=== PATIENT | male | born 1965 | race Two or more races ===

== ENCOUNTER 2018-01-20 10:50 | Inpatient (IN) | payer SELFPAY ==
[~2018-01-20] VITALS: Ht 180.3 cm; Wt 127.0 kg
--- NOTE | 2018-01-20 11:38 | PHYS DOC ---
Past Medical History Past Medical History: No Pertinent History Past Surgical History: Other Additional Past Surgical Histo: RIGHT LEG SX Alcohol Use: Heavy Drug Use: Cocaine, Marijuana Adult General Chief Complaint Chief Complaint: HAND PROBLEM HPI HPI Patient is a 52 year old male presents to the ED complaining of left hand swelling 1 day. 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 States today he has had left hand swelling and pain when he woke up. Describes the pain as sharp. Rates the pain as 8 out of 10. Denies injury, headache, chest pain, shortness of breath, paresthesias, fever, laceration. Review of Systems Review of Systems Constitutional: Denies fever or chills [] Respiratory: Denies cough or shortness of breath [] Cardiovascular: No additional information not addressed in HPI [] GI: Denies abdominal pain, nausea, vomiting, bloody stools or diarrhea [] : Denies dysuria or hematuria [] Musculoskeletal: Complains of left hand pain. Denies back pain. Integument: Denies rash or skin lesions [] Neurologic: Denies headache, focal weakness or sensory changes [] All other systems were reviewed and found to be within normal limits, except as documented in this note. Current Medications Current Medications Current Medications Medications (Trade) Dose Ordered Sig/[facility] Start Time Stop Time Status Last Admin Dose Admin Acetaminophen (Tylenol) 650 mg PRN Q4HRS PRN 01/20/18 12:45 01/21/18 12:44 Morphine Sulfate (Morphine Sulfate) 2 mg PRN Q2HR PRN 01/20/18 12:45 01/21/18 12:44 Ondansetron HCl (Zofran) 4 mg PRN Q8HRS PRN 01/20/18 12:45 01/21/18 12:44 Allergies Allergies Allergies Coded Allergies Type Severity Reaction Last Updated Verified Penicillins Allergy Intermediate 01/20/18 Yes Physical Exam Physical Exam Constitutional: Well developed, well nourished, no acute distress, non-toxic appearance. [] HENT: Normocephalic, atraumatic Cardiovascular:Heart rate regular rhythm, no murmur [] Lungs & Thorax: Bilateral breath sounds clear to auscultation [] Skin: Warm, dry. Back: No tenderness, no CVA tenderness. [] Extremities: moderate left palm and finger swelling/tenderness, pinpoint puncture wound to proximal dorsal area. mild dorsal erythema/warmth. no cyanosis , no clubbing, no edema. Decreased ROM due to swelling. Neurologic: Alert and oriented X 3, normal motor function, normal sensory function, no focal deficits noted. [] Psychologic: Affect normal, judgement normal, mood normal. [] Current Patient Data Vital Signs Vital Signs Date Time Temp Pulse Resp B/P (MAP) Pulse Ox O2 Delivery O2 Flow Rate FiO2 01/20/18 11:47 18 98 Room Air 01/20/18 11:24 99.2 76 179/99 (125) 99.2 Lab Values Laboratory Tests Test 01/20/18 11:50 White Blood Count 11.4 x10^3/uL (4.0-11.0) H Red Blood Count 4.83 x10^6/uL (4.30-5.70) Hemoglobin 16.1 g/dL (13.0-17.5) Hematocrit 46.4 % (39.0-53.0) Mean Corpuscular Volume 96 fL (79-100) Mean Corpuscular Hemoglobin 33 pg (25-35) Mean Corpuscular Hemoglobin Concent 35 g/dL (31-37) Red Cell Distribution Width 13.4 % (11.5-14.5) Platelet Count 262 x10^3/uL (140-400) Neutrophils (%) (Auto) 68 % (31-73) Lymphocytes (%) (Auto) 19 % (24-48) L Monocytes (%) (Auto) 13 % (0-9) H Eosinophils (%) (Auto) 0 % (0-3) Basophils (%) (Auto) 1 % (0-3) Neutrophils # (Auto) 7.7 x10^3uL (1.8-7.7) Lymphocytes # (Auto) 2.1 x10^3/uL (1.0-4.8) Monocytes # (Auto) 1.4 x10^3/uL (0.0-1.1) H Eosinophils # (Auto) 0.0 x10^3/uL (0.0-0.7) Basophils # (Auto) 0.1 x10^3/uL (0.0-0.2) Sodium Level 136 mmol/L (136-145) Potassium Level 3.8 mmol/L (3.5-5.1) Chloride Level 101 mmol/L (98-107) Carbon Dioxide Level 26 mmol/L (21-32) Anion Gap 9 (6-14) Blood Urea Nitrogen 3 mg/dL (8-26) L Creatinine 0.6 mg/dL (0.7-1.3) L Estimated GFR (Cockcroft-Gault) 141.5 BUN/Creatinine Ratio 5 (6-20) L Glucose Level 99 mg/dL (70-99) Calcium Level 8.2 mg/dL (8.5-10.1) L Total Bilirubin 0.8 mg/dL (0.2-1.0) Aspartate Amino Transferase (AST) 18 U/L (15-37) Alanine Aminotransferase (ALT) 33 U/L (16-63) Alkaline Phosphatase 85 U/L (46-116) C-Reactive Protein, Quantitative 76.3 mg/L (0-3.3) H Total Protein 7.3 g/dL (6.4-8.2) Albumin 3.5 g/dL (3.4-5.0) Albumin/Globulin Ratio 0.9 (1.0-1.7) L Laboratory Tests 01/20/18 11:50 Laboratory Tests 01/20/18 11:50 EKG EKG [] Radiology/Procedures Radiology/Procedures PROCEDURE: HAND LEFT 3V Left hand 3 views: Reason for examination: Swelling and pain starting last night but worse today. No known injury. No fracture or dislocation is seen. The bone density is normal. No abnormal periosteal reaction is seen. The joint spaces are maintained. IMPRESSION: No acute bony abnormality evident in the left hand.[] Course & Med Decision Making Course & Med Decision Making Pertinent Labs and Imaging studies reviewed. (See chart for details) Patients pain controlled in the ED. States he is feeling better. Cause of symptoms seems due to infection vs injury. []Discussed case with hospitalist, Dr. Rebolledo. Agrees to admission and further management of patient. Patient stable for admission. Antibiotics ordered. Dragon Disclaimer Dragon Disclaimer This electronic medical record was generated, in whole or in part, using a voice recognition dictation system. Departure Departure Impression: Primary Impression: Cellulitis of hand Disposition: ADMITTED INPATIENT Admitting Physician: Gavino Rebolledo Condition: STABLE SAADIA GROSS Jan 20, 2018 11:38
--- NOTE | 2018-01-20 11:57 | RAD ---
Left hand 3 views: Reason for examination: Swelling and pain starting last night but worse today. No known injury. No fracture or dislocation is seen. The bone density is normal. No abnormal periosteal reaction is seen. The joint spaces are maintained. IMPRESSION: No acute bony abnormality evident in the left hand. Electronically signed by: Chata Bell MD (01/20/2018 11:53 AM) [facility]
[2018-01-20] MEDS ORDERED: ONDANSETRON PF 4 MG/2 ML VIAL. IV ONE (12:00)
[2018-01-20] MEDS ORDERED: MORPHINE SULFATE 4 MG/ML VIAL. IV ONE (12:00)
[2018-01-20 12:02] LABS: BASO # 0.1 x10^3/uL (0.0-0.2); BASO % 1 % (0-3); EOS % 0 % (0-3); HEMATOCRIT 46.4 % (39.0-53.0); HEMOGLOBIN 16.1 g/dL (13.0-17.5); LYMPH # 2.1 x10^3/uL (1.0-4.8); LYMPH % 19 % (24-48); MEAN CORPUSCULAR HEMOGLOBIN 33 pg (25-35); MEAN CORPUSCULAR HGB CONC 35 g/dL (31-37); MEAN CORPUSCULAR VOLUME 96 fL (79-100); MONO # 1.4 x10^3/uL (0.0-1.1); MONO % 13 % (0-9); NEUT # 7.7 x10^3uL (1.8-7.7); NEUT % 68 % (31-73); PLATELET COUNT 262 x10^3/uL (140-400); RED BLOOD COUNT 4.83 x10^6/uL (4.30-5.70); RED CELL DISTRIBUTION WIDTH 13.4 % (11.5-14.5); WHITE BLOOD COUNT 11.4 x10^3/uL (4.0-11.0)
[2018-01-20 12:20] LABS: CALCIUM 8.2 mg/dL (8.5-10.1); CREATININE 0.6 mg/dL (0.7-1.3); GFR 141.5; POTASSIUM 3.8 mmol/L (3.5-5.1)
[2018-01-20 12:24] LABS: ALBUMIN 3.5 g/dL (3.4-5.0); ALBUMIN/GLOBULIN RATIO 0.9 (1.0-1.7); C-REACTIVE PROTEIN 76.3 mg/L (0-3.3); TOTAL BILIRUBIN 0.8 mg/dL (0.2-1.0); TOTAL PROTEIN 7.3 g/dL (6.4-8.2)
[2018-01-20] MEDS ORDERED: ACETAMINOPHEN 325 MG TABLET. PO PRN (12:45)
[2018-01-20] MEDS ORDERED: ONDANSETRON PF 4 MG/2 ML VIAL. IV PRN (12:45)
[2018-01-20] MEDS ORDERED: VANCOMYCIN 2 GM in IV NORMAL SALINE 500ML BAG 500 ML IV ONE (13:30)
[2018-01-20 14:40] VITALS: BP 180/106
--- NOTE | 2018-01-20 15:22 | HP ---
ADMIT DATE: 01/20/2018 CHIEF COMPLAINT: Left hand pain and swelling and erythema. HISTORY OF PRESENT ILLNESS: The patient is a pleasant 52-year-old male who presents with left hand swelling. It has been occurring for 1 day. He had a small lesion last night. This morning, it was completely swollen and is red and erythematous and painful. I have discussed the case with ER physician and we suspect he has got severe cellulitis. We are going to admit the patient and consult Infectious Disease and Orthopedics. PAST MEDICAL HISTORY: Right leg surgery. ALLERGIES: PENICILLIN. FAMILY HISTORY: Hypertension. SOCIAL HISTORY: He does not drink, smoke or take drugs. MEDICATIONS: Reviewed, please refer to the MRAD. REVIEW OF SYSTEMS: GENERAL: No history of weight change, weakness or fevers. SKIN: No bruising, hair changes or rashes. EYES: No blurred, double or loss of vision. NOSE AND THROAT: No history of nosebleeds, hoarseness or sore throat. HEART: No history of palpitations, chest pain or shortness of breath on exertion. LUNGS: Denies cough, hemoptysis, wheezing or shortness of breath. GASTROINTESTINAL: Denies changes in appetite, nausea, vomiting, diarrhea or constipation. GENITOURINARY: No history of frequency, urgency, hesitancy or nocturia. NEUROLOGIC: Denies history of numbness, tingling, tremor or weakness. PSYCHIATRIC: No history of panic, anxiety or depression. ENDOCRINE: No history of heat or cold intolerance, polyuria or polydipsia. EXTREMITIES: Denies muscle weakness, joint pain, pain on walking or stiffness. PHYSICAL EXAMINATION: VITAL SIGNS: Temperature afebrile at 99.2, pulse 70, respirations 18, blood pressure 179/99. GENERAL: He is alert, cooperative. HEART: Normal S1, S2. LUNGS: Clear. ABDOMEN: Soft. EXTREMITIES: The left hand is massively swollen, erythematous and painful. ENDOCRINE: No thyromegaly. LYMPHATICS: No cervical nodes. HEMATOPOIETIC: No bruising. LABORATORY DATA: White count is 11. ASSESSMENT AND PLAN: Cellulitis. The patient is being admitted. We will start IV antibiotics. Consult Orthopedics, consult Infectious Disease. DA PEREZ DO DR: LAXMI/nathanael JOB#: [id number] / [id number]
[2018-01-20] MEDS: MORPHINE SULFATE 2 MG/ML VIAL. IV PRN ×2 (17:02→21:06)
--- NOTE | 2018-01-20 17:19 | PDOC ---
Infectious Disease Note Vital Sign Vital Signs Vital Signs Date Time Temp Pulse Resp B/P (MAP) Pulse Ox O2 Delivery O2 Flow Rate FiO2 01/20/18 14:40 98.1 74 20 180/106 (130) 96 Room Air 98.1 Labs Lab Laboratory Tests Test 01/20/18 11:50 White Blood Count 11.4 x10^3/uL (4.0-11.0) Red Blood Count 4.83 x10^6/uL (4.30-5.70) Hemoglobin 16.1 g/dL (13.0-17.5) Hematocrit 46.4 % (39.0-53.0) Mean Corpuscular Volume 96 fL (79-100) Mean Corpuscular Hemoglobin 33 pg (25-35) Mean Corpuscular Hemoglobin Concent 35 g/dL (31-37) Red Cell Distribution Width 13.4 % (11.5-14.5) Platelet Count 262 x10^3/uL (140-400) Neutrophils (%) (Auto) 68 % (31-73) Lymphocytes (%) (Auto) 19 % (24-48) Monocytes (%) (Auto) 13 % (0-9) Eosinophils (%) (Auto) 0 % (0-3) Basophils (%) (Auto) 1 % (0-3) Neutrophils # (Auto) 7.7 x10^3uL (1.8-7.7) Lymphocytes # (Auto) 2.1 x10^3/uL (1.0-4.8) Monocytes # (Auto) 1.4 x10^3/uL (0.0-1.1) Eosinophils # (Auto) 0.0 x10^3/uL (0.0-0.7) Basophils # (Auto) 0.1 x10^3/uL (0.0-0.2) Sodium Level 136 mmol/L (136-145) Potassium Level 3.8 mmol/L (3.5-5.1) Chloride Level 101 mmol/L (98-107) Carbon Dioxide Level 26 mmol/L (21-32) Anion Gap 9 (6-14) Blood Urea Nitrogen 3 mg/dL (8-26) Creatinine 0.6 mg/dL (0.7-1.3) Estimated GFR (Cockcroft-Gault) 141.5 BUN/Creatinine Ratio 5 (6-20) Glucose Level 99 mg/dL (70-99) Calcium Level 8.2 mg/dL (8.5-10.1) Total Bilirubin 0.8 mg/dL (0.2-1.0) Aspartate Amino Transf (AST/SGOT) 18 U/L (15-37) Alanine Aminotransferase (ALT/SGPT) 33 U/L (16-63) Alkaline Phosphatase 85 U/L (46-116) C-Reactive Protein, Quantitative 76.3 mg/L (0-3.3) Total Protein 7.3 g/dL (6.4-8.2) Albumin 3.5 g/dL (3.4-5.0) Albumin/Globulin Ratio 0.9 (1.0-1.7) Objective Assessment Cellulitis of left hand PCN allergy - welts Hypertension Morbid obesity Plan Plan of Care Continue vancomycin Monitor response as well renal functio closely Ortho has been consulted Thank you [phone] Patient seen and examined. Chart reviewed in detail. Case discussed with BRICK KILN BURNER. Agree with above plan. JULI HO APRN Jan 20, 2018 17:19 CHILO HENDERSON MD Jan 20, 2018 21:31
[2018-01-20] MEDS: VANCOMYCIN PER PHARMACY MC PRN (17:31)
[2018-01-20 19:56] VITALS: BP 163/77
[2018-01-20] MEDS: VANCOMYCIN 1.5 GM in IV NORMAL SALINE 500ML BAG 500 ML IV SCH (21:06)
[2018-01-20 23:24] VITALS: BP 163/85
[2018-01-21 03:56] VITALS: BP 171/88
[2018-01-21 05:26] LABS: BASO # 0.1 x10^3/uL (0.0-0.2); BASO % 1 % (0-3); EOS # 0.1 x10^3/uL (0.0-0.7); EOS % 1 % (0-3); HEMATOCRIT 45.3 % (39.0-53.0); HEMOGLOBIN 16.1 g/dL (13.0-17.5); LYMPH # 1.7 x10^3/uL (1.0-4.8); LYMPH % 14 % (24-48); MEAN CORPUSCULAR HEMOGLOBIN 34 pg (25-35); MEAN CORPUSCULAR HGB CONC 35 g/dL (31-37); MEAN CORPUSCULAR VOLUME 96 fL (79-100); MONO % 8 % (0-9); NEUT % 76 % (31-73); PLATELET COUNT 245 x10^3/uL (140-400); RED BLOOD COUNT 4.72 x10^6/uL (4.30-5.70); RED CELL DISTRIBUTION WIDTH 13.2 % (11.5-14.5); WHITE BLOOD COUNT 11.8 x10^3/uL (4.0-11.0)
--- NOTE | 2018-01-21 05:35 | CONS ---
DATE OF CONSULTATION: 01/20/2018 Saud Yan NP, dictating for Chilo Henderson MD REFERRING PHYSICIAN: Dr. Lo. REASON FOR CONSULTATION: Cellulitis. 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 A couple of weeks ago, he smashed his right index finger while working. He initially had some pain and swelling that has since resolved. Three days ago, he woke with swelling of his left hand. Over the following 24 hours, the swelling worsened, became painful and cannot make a infant nanny. He denies injury to his left hand. He does not have any pets. He denies fevers, chills or sweats. On arrival to the ER, his white blood cell count was 11,400. An x-ray of the left hand showed no fracture, dislocation or abnormal periosteal reaction. Joint space is maintained. He was dosed with vancomycin and cefazolin. PAST MEDICAL HISTORY: Obesity, recent injury to right index finger. PAST SURGICAL HISTORY: Right knee surgery. FAMILY HISTORY: Positive for hypertension. SOCIAL HISTORY: The patient is . His lives in [place]. He is employed hanging [employer]. He drinks beer. Has a history of cocaine use. ALLERGIES: PENICILLIN causing WELTS. MEDICATIONS: One-time dose of vancomycin and cefazolin, morphine, ondansetron, Tylenol. REVIEW OF SYSTEMS: Per HPI, otherwise all other review of systems are negative. PHYSICAL EXAMINATION: GENERAL: The patient is sitting in a chair, alert, smiling and joking. VITAL SIGNS: Temperature 98.1, blood pressure 180/106, heart rate 74, respiratory rate 20, pulse oximetry 96% on room air. BMI 20. HEENT: Normal conjunctivae. Oral mucosa is pink and moist. NECK: Supple. LUNGS: Clear to auscultation. HEART: S1, S2. ABDOMEN: Obese. Bowel sounds active. Soft, nontender. EXTREMITIES: No gross edema or cyanosis. Right index finger tip a little swollen with some peeling skin and dry blood. His left hand is markedly swollen, warm with mild erythema. Radial pulse palpable. Brisk capillary refill. Limited range of motion of fingers. SKIN: Warm without rash. NEUROLOGIC: Alert and oriented x 3. LABORATORY DATA: WBC 11.4; hemoglobin 16.1; platelet count 262,000. Creatinine 0.6, BUN 3. Electrolytes are unremarkable. Total bilirubin 0.8, AST 18, ALT 33. CRP 76.3, albumin 3.5. Hand x-ray per HPI. IMPRESSION: 1. Cellulitis of the left hand. 2. PENICILLIN allergy causing WELTS. 3. Hypertension. 4. Morbid obesity. PLAN: Continue the vancomycin. Monitor response as well as renal function closely. Ortho has been consulted. Thank you, Dr. Lo, for asking us to participate in this patient's care. Should you have further questions or concerns, please call. CHILO HENDERSON MD DR: MARIO ALBERTO/nathanael JOB#: [id number] / [id number]
[2018-01-21] MEDS: VANCOMYCIN 1.5 GM in IV NORMAL SALINE 500ML BAG 500 ML IV SCH ×2 (05:45→14:46)
[2018-01-21] MEDS: MORPHINE SULFATE 2 MG/ML VIAL. IV PRN (05:46)
[2018-01-21 06:11] LABS: ALBUMIN/GLOBULIN RATIO 0.8 (1.0-1.7); CALCIUM 8.4 mg/dL (8.5-10.1); CREATININE 0.8 mg/dL (0.7-1.3); GFR 101.5; TOTAL BILIRUBIN 1.1 mg/dL (0.2-1.0)
[2018-01-21 07:00] VITALS: BP 171/88
[2018-01-21] MEDS ORDERED: LIDOCAINE 1% PF 2 ML VIAL. ID PRN (09:45)
[2018-01-21] MEDS ORDERED: MORPHINE SULFATE 2 MG/ML VIAL. IV PRN (09:45)
[2018-01-21] MEDS ORDERED: HYDROmorphone 2 MG/ML VIAL IV PRN (09:45)
[2018-01-21] MEDS ORDERED: IV RINGERS,LACTATED 1000ML 1,000 ML IV SCH (09:45)
[2018-01-21] MEDS ORDERED: PROCHLORPERAZINE 10 MG/2 ML VIAL. IV PRN (09:45)
[2018-01-21] MEDS ORDERED: fentaNYL PF VIAL 100 MCG/2 ML VIAL IV PRN (09:45)
[2018-01-21] MEDS ORDERED: ONDANSETRON PF 4 MG/2 ML VIAL. IV PRN (09:45)
[2018-01-21 11:00] VITALS: BP 184/103
--- NOTE | 2018-01-21 11:24 | PDOC ---
PROGRESS NOTES Chief Complaint Chief Complaint smashed his right index finger at work. some pain and swelling Three days ago, he woke with swelling of his left hand. Over the following 24 hours, the swelling is much worse, History of Present Illness History of Present Illness Assessment marked Cellulitis of left hand PCN allergy - Hypertension Morbid obesity Plan Continue vancomycin Ortho consulted Vitals Vitals Vital Signs Date Time Temp Pulse Resp B/P (MAP) Pulse Ox O2 Delivery O2 Flow Rate FiO2 01/21/18 07:00 98.5 82 18 171/88 (115) 97 Room Air 98.5 Physical Exam Physical Exam EXTREMITIES: The left hand is massively swollen, erythematous and painful. General: Oriented X3, Cooperative, moderate distress Heart: Regular rate Lungs: Clear Abdomen: Soft Extremities: No cyanosis Labs LABS Left hand 3 views: Reason for examination: Swelling and pain starting last night but worse today. No known injury. No fracture or dislocation is seen. The bone density is normal. No abnormal periosteal reaction is seen. The joint spaces are maintained. IMPRESSION: No acute bony abnormality evident in the left hand. Electronically signed by: Chata Bell MD (01/20/2018 11:53 AM) [facility] Laboratory Tests Test 01/20/18 11:50 01/21/18 05:15 01/21/18 05:16 White Blood Count 11.4 x10^3/uL (4.0-11.0) 11.8 x10^3/uL (4.0-11.0) Red Blood Count 4.83 x10^6/uL (4.30-5.70) 4.72 x10^6/uL (4.30-5.70) Hemoglobin 16.1 g/dL (13.0-17.5) 16.1 g/dL (13.0-17.5) Hematocrit 46.4 % (39.0-53.0) 45.3 % (39.0-53.0) Mean Corpuscular Volume 96 fL (79-100) 96 fL (79-100) Mean Corpuscular Hemoglobin 33 pg (25-35) 34 pg (25-35) Mean Corpuscular Hemoglobin Concent 35 g/dL (31-37) 35 g/dL (31-37) Red Cell Distribution Width 13.4 % (11.5-14.5) 13.2 % (11.5-14.5) Platelet Count 262 x10^3/uL (140-400) 245 x10^3/uL (140-400) Neutrophils (%) (Auto) 68 % (31-73) 76 % (31-73) Lymphocytes (%) (Auto) 19 % (24-48) 14 % (24-48) Monocytes (%) (Auto) 13 % (0-9) 8 % (0-9) Eosinophils (%) (Auto) 0 % (0-3) 1 % (0-3) Basophils (%) (Auto) 1 % (0-3) 1 % (0-3) Neutrophils # (Auto) 7.7 x10^3uL (1.8-7.7) 9.0 x10^3uL (1.8-7.7) Lymphocytes # (Auto) 2.1 x10^3/uL (1.0-4.8) 1.7 x10^3/uL (1.0-4.8) Monocytes # (Auto) 1.4 x10^3/uL (0.0-1.1) 1.0 x10^3/uL (0.0-1.1) Eosinophils # (Auto) 0.0 x10^3/uL (0.0-0.7) 0.1 x10^3/uL (0.0-0.7) Basophils # (Auto) 0.1 x10^3/uL (0.0-0.2) 0.1 x10^3/uL (0.0-0.2) Sodium Level 136 mmol/L (136-145) 137 mmol/L (136-145) Potassium Level 3.8 mmol/L (3.5-5.1) 4.0 mmol/L (3.5-5.1) Chloride Level 101 mmol/L (98-107) 102 mmol/L (98-107) Carbon Dioxide Level 26 mmol/L (21-32) 28 mmol/L (21-32) Anion Gap 9 (6-14) 7 (6-14) Blood Urea Nitrogen 3 mg/dL (8-26) 5 mg/dL (8-26) Creatinine 0.6 mg/dL (0.7-1.3) 0.8 mg/dL (0.7-1.3) Estimated GFR (Cockcroft-Gault) 141.5 101.5 BUN/Creatinine Ratio 5 (6-20) 6 (6-20) Glucose Level 99 mg/dL (70-99) 130 mg/dL (70-99) Calcium Level 8.2 mg/dL (8.5-10.1) 8.4 mg/dL (8.5-10.1) Total Bilirubin 0.8 mg/dL (0.2-1.0) 1.1 mg/dL (0.2-1.0) Aspartate Amino Transf (AST/SGOT) 18 U/L (15-37) 14 U/L (15-37) Alanine Aminotransferase (ALT/SGPT) 33 U/L (16-63) 24 U/L (16-63) Alkaline Phosphatase 85 U/L (46-116) 81 U/L (46-116) C-Reactive Protein, Quantitative 76.3 mg/L (0-3.3) Total Protein 7.3 g/dL (6.4-8.2) 7.0 g/dL (6.4-8.2) Albumin 3.5 g/dL (3.4-5.0) 3.0 g/dL (3.4-5.0) Albumin/Globulin Ratio 0.9 (1.0-1.7) 0.8 (1.0-1.7) Assessment and Plan Assessmemt and Plan Problems Medical Problems: (1) Cellulitis of hand Status: Acute Comment Review of Relevant I have reviewed the following items sammy (where applicable) has been applied. Labs Laboratory Tests Test 01/20/18 11:50 01/21/18 05:15 01/21/18 05:16 White Blood Count 11.4 x10^3/uL (4.0-11.0) 11.8 x10^3/uL (4.0-11.0) Red Blood Count 4.83 x10^6/uL (4.30-5.70) 4.72 x10^6/uL (4.30-5.70) Hemoglobin 16.1 g/dL (13.0-17.5) 16.1 g/dL (13.0-17.5) Hematocrit 46.4 % (39.0-53.0) 45.3 % (39.0-53.0) Mean Corpuscular Volume 96 fL (79-100) 96 fL (79-100) Mean Corpuscular Hemoglobin 33 pg (25-35) 34 pg (25-35) Mean Corpuscular Hemoglobin Concent 35 g/dL (31-37) 35 g/dL (31-37) Red Cell Distribution Width 13.4 % (11.5-14.5) 13.2 % (11.5-14.5) Platelet Count 262 x10^3/uL (140-400) 245 x10^3/uL (140-400) Neutrophils (%) (Auto) 68 % (31-73) 76 % (31-73) Lymphocytes (%) (Auto) 19 % (24-48) 14 % (24-48) Monocytes (%) (Auto) 13 % (0-9) 8 % (0-9) Eosinophils (%) (Auto) 0 % (0-3) 1 % (0-3) Basophils (%) (Auto) 1 % (0-3) 1 % (0-3) Neutrophils # (Auto) 7.7 x10^3uL (1.8-7.7) 9.0 x10^3uL (1.8-7.7) Lymphocytes # (Auto) 2.1 x10^3/uL (1.0-4.8) 1.7 x10^3/uL (1.0-4.8) Monocytes # (Auto) 1.4 x10^3/uL (0.0-1.1) 1.0 x10^3/uL (0.0-1.1) Eosinophils # (Auto) 0.0 x10^3/uL (0.0-0.7) 0.1 x10^3/uL (0.0-0.7) Basophils # (Auto) 0.1 x10^3/uL (0.0-0.2) 0.1 x10^3/uL (0.0-0.2) Sodium Level 136 mmol/L (136-145) 137 mmol/L (136-145) Potassium Level 3.8 mmol/L (3.5-5.1) 4.0 mmol/L (3.5-5.1) Chloride Level 101 mmol/L (98-107) 102 mmol/L (98-107) Carbon Dioxide Level 26 mmol/L (21-32) 28 mmol/L (21-32) Anion Gap 9 (6-14) 7 (6-14) Blood Urea Nitrogen 3 mg/dL (8-26) 5 mg/dL (8-26) Creatinine 0.6 mg/dL (0.7-1.3) 0.8 mg/dL (0.7-1.3) Estimated GFR (Cockcroft-Gault) 141.5 101.5 BUN/Creatinine Ratio 5 (6-20) 6 (6-20) Glucose Level 99 mg/dL (70-99) 130 mg/dL (70-99) Calcium Level 8.2 mg/dL (8.5-10.1) 8.4 mg/dL (8.5-10.1) Total Bilirubin 0.8 mg/dL (0.2-1.0) 1.1 mg/dL (0.2-1.0) Aspartate Amino Transf (AST/SGOT) 18 U/L (15-37) 14 U/L (15-37) Alanine Aminotransferase (ALT/SGPT) 33 U/L (16-63) 24 U/L (16-63) Alkaline Phosphatase 85 U/L (46-116) 81 U/L (46-116) C-Reactive Protein, Quantitative 76.3 mg/L (0-3.3) Total Protein 7.3 g/dL (6.4-8.2) 7.0 g/dL (6.4-8.2) Albumin 3.5 g/dL (3.4-5.0) 3.0 g/dL (3.4-5.0) Albumin/Globulin Ratio 0.9 (1.0-1.7) 0.8 (1.0-1.7) Laboratory Tests Test 01/20/18 11:50 01/21/18 05:15 01/21/18 05:16 White Blood Count 11.4 x10^3/uL (4.0-11.0) 11.8 x10^3/uL (4.0-11.0) Red Blood Count 4.83 x10^6/uL (4.30-5.70) 4.72 x10^6/uL (4.30-5.70) Hemoglobin 16.1 g/dL (13.0-17.5) 16.1 g/dL (13.0-17.5) Hematocrit 46.4 % (39.0-53.0) 45.3 % (39.0-53.0) Mean Corpuscular Volume 96 fL (79-100) 96 fL (79-100) Mean Corpuscular Hemoglobin 33 pg (25-35) 34 pg (25-35) Mean Corpuscular Hemoglobin Concent 35 g/dL (31-37) 35 g/dL (31-37) Red Cell Distribution Width 13.4 % (11.5-14.5) 13.2 % (11.5-14.5) Platelet Count 262 x10^3/uL (140-400) 245 x10^3/uL (140-400) Neutrophils (%) (Auto) 68 % (31-73) 76 % (31-73) Lymphocytes (%) (Auto) 19 % (24-48) 14 % (24-48) Monocytes (%) (Auto) 13 % (0-9) 8 % (0-9) Eosinophils (%) (Auto) 0 % (0-3) 1 % (0-3) Basophils (%) (Auto) 1 % (0-3) 1 % (0-3) Neutrophils # (Auto) 7.7 x10^3uL (1.8-7.7) 9.0 x10^3uL (1.8-7.7) Lymphocytes # (Auto) 2.1 x10^3/uL (1.0-4.8) 1.7 x10^3/uL (1.0-4.8) Monocytes # (Auto) 1.4 x10^3/uL (0.0-1.1) 1.0 x10^3/uL (0.0-1.1) Eosinophils # (Auto) 0.0 x10^3/uL (0.0-0.7) 0.1 x10^3/uL (0.0-0.7) Basophils # (Auto) 0.1 x10^3/uL (0.0-0.2) 0.1 x10^3/uL (0.0-0.2) Sodium Level 136 mmol/L (136-145) 137 mmol/L (136-145) Potassium Level 3.8 mmol/L (3.5-5.1) 4.0 mmol/L (3.5-5.1) Chloride Level 101 mmol/L (98-107) 102 mmol/L (98-107) Carbon Dioxide Level 26 mmol/L (21-32) 28 mmol/L (21-32) Anion Gap 9 (6-14) 7 (6-14) Blood Urea Nitrogen 3 mg/dL (8-26) 5 mg/dL (8-26) Creatinine 0.6 mg/dL (0.7-1.3) 0.8 mg/dL (0.7-1.3) Estimated GFR (Cockcroft-Gault) 141.5 101.5 BUN/Creatinine Ratio 5 (6-20) 6 (6-20) Glucose Level 99 mg/dL (70-99) 130 mg/dL (70-99) Calcium Level 8.2 mg/dL (8.5-10.1) 8.4 mg/dL (8.5-10.1) Total Bilirubin 0.8 mg/dL (0.2-1.0) 1.1 mg/dL (0.2-1.0) Aspartate Amino Transf (AST/SGOT) 18 U/L (15-37) 14 U/L (15-37) Alanine Aminotransferase (ALT/SGPT) 33 U/L (16-63) 24 U/L (16-63) Alkaline Phosphatase 85 U/L (46-116) 81 U/L (46-116) C-Reactive Protein, Quantitative 76.3 mg/L (0-3.3) Total Protein 7.3 g/dL (6.4-8.2) 7.0 g/dL (6.4-8.2) Albumin 3.5 g/dL (3.4-5.0) 3.0 g/dL (3.4-5.0) Albumin/Globulin Ratio 0.9 (1.0-1.7) 0.8 (1.0-1.7) Medications Current Medications Morphine Sulfate (Morphine Sulfate) 4 mg 1X ONCE IV Last administered on at 11:47; Start 01/20/18 at 12:00; Stop 01/20/18 at 12:01; Status DC Ondansetron HCl (Zofran) 4 mg 1X ONCE IV Last administered on 01/20/18at 11:47 ; Start 01/20/18 at 12:00; Stop 01/20/18 at 12:01; Status DC Vancomycin HCl 2 gm/Sodium Chloride 500 ml @ 250 mls/hr 1X ONCE IV Last administered on 01/20/18at 13:32; Start 01/20/18 at 13:30; Stop 01/20/18 at 15:29 ; Status DC Cefazolin Sodium 50 ml @ 100 mls/hr 1X ONCE IV Last administered on at 12:59; Start 01/20/18 at 13:00; Stop 01/20/18 at 13:29; Status DC Ondansetron HCl (Zofran) 4 mg PRN Q8HRS PRN IV NAUSEA/VOMITING; Start 01/20/18 at 12:45; Stop 01/21/18 at 12:44 Morphine Sulfate (Morphine Sulfate) 2 mg PRN Q2HR PRN IV PAIN Last administered on 01/21/18at 05:46; Start 01/20/18 at 12:45; Stop 01/21/18 at 12:44 Acetaminophen (Tylenol) 650 mg PRN Q4HRS PRN PO FEVER; Start 01/20/18 at 12:45 ; Stop 01/21/18 at 12:44 Vancomycin HCl (Vanco Per Pharmacy) 1 each PRN DAILY PRN MC SEE COMMENTS Last administered on 01/20/18at 17:31; Start 01/20/18 at 17:15 Vancomycin HCl 1.5 gm/Sodium Chloride 500 ml @ 250 mls/hr Q8H IV Last administered on 01/21/18at 05:45; Start 01/20/18 at 21:30 Vancomycin HCl (Vancomycin Trough Level) 1 each 1X ONCE MC ; Start 01/21/18 at 13:00; Stop 01/21/18 at 13:01 Ondansetron HCl (Zofran) 4 mg PRN Q6HRS PRN IV NAUSEA/VOMITING; Start 01/21/18 at 09:45; Stop 01/22/18 at 09:44 Fentanyl Citrate (Fentanyl 2ml Vial) 25 mcg PRN Q5MIN PRN IV MILD PAIN; Start 01/21/18 at 09:45; Stop 01/21/18 at 23:00 Fentanyl Citrate (Fentanyl 2ml Vial) 50 mcg PRN Q5MIN PRN IV MODERATE TO SEVERE PAIN; Start 01/21/18 at 09:45; Stop 01/21/18 at 23:00 Morphine Sulfate (Morphine Sulfate) 1 mg PRN Q10MIN PRN IV SEVERE PAIN; Start 01/21/18 at 09:45; Stop 01/21/18 at 23:00 Ringer's Solution 1,000 ml @ 30 mls/hr Q24H IV ; Start 01/21/18 at 09:45; Stop 01/21/18 at 21:44 Lidocaine HCl (Xylocaine-Mpf 1% 2ml Vial) 2 ml 1X PRN PRN ID IV START; Start at 09:45; Stop 01/21/18 at 23:00 Hydromorphone HCl (Dilaudid) 0.5 mg PRN Q10MIN PRN IV SEV PAIN, Second choice; Start 01/21/18 at 09:45; Stop 01/21/18 at 23:00 Prochlorperazine Edisylate (Compazine) 5 mg PACU PRN PRN IV NAUSEA, MRX1; Start 01/21/18 at 09:45; Stop 01/21/18 at 23:00 Vitals/I & O Vital Sign - Last 24 Hours 01/20/18 01/20/18 01/20/18 01/20/18 11:24 11:47 14:40 17:02 Temp 99.2 98.1 99.2 98.1 Pulse 76 74 Resp 18 18 20 18 B/P (MAP) 179/99 (125) 180/106 (130) Pulse Ox 98 98 96 O2 Delivery Room Air Room Air Room Air Room Air 01/20/18 01/20/18 01/20/18 01/20/18 17:30 17:38 19:51 19:56 Temp 99.1 99.1 Pulse 83 Resp 19 18 B/P (MAP) 163/77 (105) Pulse Ox 95 O2 Delivery Room Air Room Air Room Air 01/20/18 01/20/18 01/21/18 01/21/18 21:06 23:24 03:56 05:46 Temp 99.3 98.5 99.3 98.5 Pulse 81 82 Resp 18 18 B/P (MAP) 163/85 (111) 171/88 (115) Pulse Ox 97 97 O2 Delivery Room Air Room Air Room Air Room Air 01/21/18 01/21/18 06:25 07:00 Temp 98.5 98.5 Pulse 82 Resp 18 B/P (MAP) 171/88 (115) Pulse Ox 97 O2 Delivery Room Air Room Air Intake and Output 01/20/18 01/20/18 01/21/18 15:01 23:01 07:01 Intake Total 50 ml 300 ml 480 ml Balance 50 ml 300 ml 480 ml SMITH SAUER MD Jan 21, 2018 11:24
[2018-01-21] MEDS ORDERED: LIDOCAINE 1% PF 30 ML VIAL. ONE (12:15)
[2018-01-21] MEDS ORDERED: BUPIVACAINE 0.5% 50 ML VIAL. ONE (12:15)
[2018-01-21] MEDS ORDERED: PROPOFOL 20 ML IV ONE (12:30)
[2018-01-21] MEDS ORDERED: LIDOCAINE 2% PF Vial for OR 5 ML VIAL. ONE (12:30)
[2018-01-21] MEDS ORDERED: SCOPOLAMINE 1.5MG PATCH. TD ONE (13:30)
[2018-01-21] MEDS ORDERED: fentaNYL PF VIAL 100 MCG/2 ML VIAL ONE ×3 (14:20→15:43)
[2018-01-21] MEDS ORDERED: FAMOTIDINE 20 MG/2 ML VIAL ONE (14:20)
[2018-01-21] MEDS ORDERED: MIDAZOLAM HCL/PF 2 MG/2 ML VIAL. ONE (14:20)
[2018-01-21] MEDS ORDERED: DEXAMETHASONE SOD PHOS 20 MG/5 ML VIAL. ONE (14:20)
[2018-01-21] MEDS ORDERED: ONDANSETRON PF 4 MG/2 ML VIAL. ONE (14:20)
[2018-01-21 14:27] LABS: VANC TR 7.5 mcg/mL (10.0-20.0)
[2018-01-21] MEDS: VANCOMYCIN PER PHARMACY MC PRN (14:49)
[2018-01-21] MEDS ORDERED: ISOFLURANE 61 TO 120 MINUTES. IH ONE (14:55)
[2018-01-21] MEDS ORDERED: SEVOFLURANE 31 TO 60 MINUTES. IH ONE (15:00)
--- NOTE | 2018-01-21 15:32 | PDOC4 ---
Operative Note Operative Note Date of procedure: 01/21/2018 Surgeon: Graham Masterson Preoperative diagnosis: Dorsal left hand infection Postoperative diagnosis: Same Procedure performed: I&D of dorsal left hand infection through subcutaneous tissue Anesthesia: Gen. Findings: Thin watery fluid with small amount of necrotic debris and dorsum of hand, subcutaneous tissue Blood loss: 10 mL Tourniquet time: 22 minutes Specimens: Swabs and tissue were sent for culture. 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 I was asked to see him in consultation. Please my consult note for further details. He feels pain on the dorsum of his hand, it has been going to her his wrist and spreading since it first developed. Because of the clinical scenario, I discussed the risks, benefits, alternatives to the above surgery and he elected to proceed. Description of procedure: Patient was greeted in the preoperative area by myself for the correct extremity was verified and marked. He was taken to the operative suite and his scheduled antibiotics are maintained. Once in the operating room, he should just padded operating table and secured to bed with all pressure points padded. He underwent successful induction of a general anesthetic. A nonsterile tourniquet was applied to his left upper extremity. We then proceeded to prep and drape left upper extremity in her usual sterile fashion, there were no open wounds, so we used ChloraPrep. I then used gravity to exsanguinate and tourniquet was insufflated to 250 mmHg. I then made approximately an 8-10 cm incision centered over the dorsum of his hand and incised skin with a scalpel. I dissected subcutaneous tissue with tenotomies and cauterized bleeders as a were encountered. I bluntly dissected in the subcutaneous space and remove some necrotic debris with a curet and Rominger. I developed the area over the entire dorsum of his hand from his first to fifth metacarpals, proceeding distally to about his MCP joints and proximally to his wrist joint. This whole area had a thin serous fluid in it and there was a small amount of scattered necrotic debris. I irrigated his dorsal hand out with sterile saline and then inspected the area again and removed some more debris. I sent off my specimens as well as this time. After this, I cauterized a couple venous bleeders. I then continued my irrigation and used the entire of the 3000 mL. I then closed skin with 3-0 nylon in a horizontal mattress fashion, prior to placing my last stitch, I placed a Breanna drain and of the dorsum of his hand. I then placed another simple stitch to reapproximate skin edge around the [place], taking care not to entrap the [place] drain. I then placed Xeroform around the wound and drain followed by gauze. This was followed by sterile Sof- Rol followed by an Joey wrap. The tourniquet was let down. He tolerated surgery well. No complications. At the conclusion of the surgery, he was awakened and transferred in spite of the hospital bed and taken to PACU in a stable and x- ray condition. Postoperative plan is to follow along with his hospital course. Antibiotics per infectious disease. We will await wound cultures. I will monitor his clinical progress. GRAHAM MASTERSON II, MD Jan 21, 2018 15:32
[2018-01-21] MEDS: fentaNYL PF VIAL 100 MCG/2 ML VIAL IV PRN ×2 (15:49→16:09)
[2018-01-21] MEDS: VANCOMYCIN 1.75 GM in IV NORMAL SALINE 500ML BAG 500 ML IV SCH ×2 (16:29→23:00)
[2018-01-21 19:45] VITALS: BP 156/68
[2018-01-21] MEDS: LACTOBACILLUS RHAMNOSUS GG 1 CAPSULE. PO SCH (22:19)
[2018-01-21 23:45] VITALS: BP 126/66
[2018-01-22 03:45] VITALS: BP 131/71
[2018-01-22 05:24] LABS: CALCIUM 7.7 mg/dL (8.5-10.1); CREATININE 0.7 mg/dL (0.7-1.3); GFR 118.4; POTASSIUM 4.1 mmol/L (3.5-5.1)
[2018-01-22] MEDS: VANCOMYCIN 1.75 GM in IV NORMAL SALINE 500ML BAG 500 ML IV SCH ×3 (06:13→22:42)
[2018-01-22 07:46] VITALS: BP 140/87
[2018-01-22] MEDS ORDERED: MORPHINE SULFATE 2 MG/ML VIAL. IV PRN (08:30)
[2018-01-22] MEDS: HYDROcodone/APAP 7.5/325MG 1 TAB TABLET PO PRN ×3 (09:07→21:12)
--- NOTE | 2018-01-22 11:37 | PDOC ---
PROGRESS NOTES Chief Complaint Chief Complaint smashed his right index finger at work. some pain and swelling Three days ago, he woke with swelling of his left hand. History of Present Illness History of Present Illness Assessment marked Cellulitis of left hand POST I/D PCN allergy - Hypertension Morbid obesity Plan Continue vancomycin, ROCEPHIN Ortho FOLLOWING Vitals Vitals Vital Signs Date Time Temp Pulse Resp B/P (MAP) Pulse Ox O2 Delivery O2 Flow Rate FiO2 01/22/18 07:46 97.7 64 20 140/87 (104) 97 Room Air 97.7 01/21/18 20:15 2.0 Physical Exam Physical Exam EXTREMITIES: The left hand is massively swollen, erythematous and painful. General: Alert, Oriented X3, Cooperative, mild distress, moderate distress Heart: Regular rate Lungs: Clear Abdomen: Normal bowel sounds, Soft Extremities: No cyanosis Skin: Other (HAND WRAPPED, DRY) Labs LABS Laboratory Tests Test 01/21/18 14:00 01/22/18 03:00 Vancomycin Level Trough 7.5 mcg/mL (10.0-20.0) Vancomycin Last Dose Date 01/21/18 Vancomycin Last Dose Time 0600 Sodium Level 137 mmol/L (136-145) Potassium Level 4.1 mmol/L (3.5-5.1) Chloride Level 104 mmol/L (98-107) Carbon Dioxide Level 27 mmol/L (21-32) Anion Gap 6 (6-14) Blood Urea Nitrogen 8 mg/dL (8-26) Creatinine 0.7 mg/dL (0.7-1.3) Estimated GFR (Cockcroft-Gault) 118.4 Glucose Level 181 mg/dL (70-99) Calcium Level 7.7 mg/dL (8.5-10.1) Assessment and Plan Assessmemt and Plan Problems Medical Problems: (1) Cellulitis of hand Status: Acute Comment Review of Relevant I have reviewed the following items sammy (where applicable) has been applied. Labs Laboratory Tests Test 01/20/18 11:50 01/21/18 05:15 01/21/18 05:16 01/21/18 14:00 White Blood Count 11.4 x10^3/uL (4.0-11.0) 11.8 x10^3/uL (4.0-11.0) Red Blood Count 4.83 x10^6/uL (4.30-5.70) 4.72 x10^6/uL (4.30-5.70) Hemoglobin 16.1 g/dL (13.0-17.5) 16.1 g/dL (13.0-17.5) Hematocrit 46.4 % (39.0-53.0) 45.3 % (39.0-53.0) Mean Corpuscular Volume 96 fL (79-100) 96 fL (79-100) Mean Corpuscular Hemoglobin 33 pg (25-35) 34 pg (25-35) Mean Corpuscular Hemoglobin Concent 35 g/dL (31-37) 35 g/dL (31-37) Red Cell Distribution Width 13.4 % (11.5-14.5) 13.2 % (11.5-14.5) Platelet Count 262 x10^3/uL (140-400) 245 x10^3/uL (140-400) Neutrophils (%) (Auto) 68 % (31-73) 76 % (31-73) Lymphocytes (%) (Auto) 19 % (24-48) 14 % (24-48) Monocytes (%) (Auto) 13 % (0-9) 8 % (0-9) Eosinophils (%) (Auto) 0 % (0-3) 1 % (0-3) Basophils (%) (Auto) 1 % (0-3) 1 % (0-3) Neutrophils # (Auto) 7.7 x10^3uL (1.8-7.7) 9.0 x10^3uL (1.8-7.7) Lymphocytes # (Auto) 2.1 x10^3/uL (1.0-4.8) 1.7 x10^3/uL (1.0-4.8) Monocytes # (Auto) 1.4 x10^3/uL (0.0-1.1) 1.0 x10^3/uL (0.0-1.1) Eosinophils # (Auto) 0.0 x10^3/uL (0.0-0.7) 0.1 x10^3/uL (0.0-0.7) Basophils # (Auto) 0.1 x10^3/uL (0.0-0.2) 0.1 x10^3/uL (0.0-0.2) Sodium Level 136 mmol/L (136-145) 137 mmol/L (136-145) Potassium Level 3.8 mmol/L (3.5-5.1) 4.0 mmol/L (3.5-5.1) Chloride Level 101 mmol/L (98-107) 102 mmol/L (98-107) Carbon Dioxide Level 26 mmol/L (21-32) 28 mmol/L (21-32) Anion Gap 9 (6-14) 7 (6-14) Blood Urea Nitrogen 3 mg/dL (8-26) 5 mg/dL (8-26) Creatinine 0.6 mg/dL (0.7-1.3) 0.8 mg/dL (0.7-1.3) Estimated GFR (Cockcroft-Gault) 141.5 101.5 BUN/Creatinine Ratio 5 (6-20) 6 (6-20) Glucose Level 99 mg/dL (70-99) 130 mg/dL (70-99) Calcium Level 8.2 mg/dL (8.5-10.1) 8.4 mg/dL (8.5-10.1) Total Bilirubin 0.8 mg/dL (0.2-1.0) 1.1 mg/dL (0.2-1.0) Aspartate Amino Transf (AST/SGOT) 18 U/L (15-37) 14 U/L (15-37) Alanine Aminotransferase (ALT/SGPT) 33 U/L (16-63) 24 U/L (16-63) Alkaline Phosphatase 85 U/L (46-116) 81 U/L (46-116) C-Reactive Protein, Quantitative 76.3 mg/L (0-3.3) Total Protein 7.3 g/dL (6.4-8.2) 7.0 g/dL (6.4-8.2) Albumin 3.5 g/dL (3.4-5.0) 3.0 g/dL (3.4-5.0) Albumin/Globulin Ratio 0.9 (1.0-1.7) 0.8 (1.0-1.7) Vancomycin Level Trough 7.5 mcg/mL (10.0-20.0) Vancomycin Last Dose Date 01/21/18 Vancomycin Last Dose Time 0600 Test 01/22/18 03:00 Sodium Level 137 mmol/L (136-145) Potassium Level 4.1 mmol/L (3.5-5.1) Chloride Level 104 mmol/L (98-107) Carbon Dioxide Level 27 mmol/L (21-32) Anion Gap 6 (6-14) Blood Urea Nitrogen 8 mg/dL (8-26) Creatinine 0.7 mg/dL (0.7-1.3) Estimated GFR (Cockcroft-Gault) 118.4 Glucose Level 181 mg/dL (70-99) Calcium Level 7.7 mg/dL (8.5-10.1) Laboratory Tests Test 01/21/18 14:00 01/22/18 03:00 Vancomycin Level Trough 7.5 mcg/mL (10.0-20.0) Vancomycin Last Dose Date 01/21/18 Vancomycin Last Dose Time 0600 Sodium Level 137 mmol/L (136-145) Potassium Level 4.1 mmol/L (3.5-5.1) Chloride Level 104 mmol/L (98-107) Carbon Dioxide Level 27 mmol/L (21-32) Anion Gap 6 (6-14) Blood Urea Nitrogen 8 mg/dL (8-26) Creatinine 0.7 mg/dL (0.7-1.3) Estimated GFR (Cockcroft-Gault) 118.4 Glucose Level 181 mg/dL (70-99) Calcium Level 7.7 mg/dL (8.5-10.1) Medications Current Medications Morphine Sulfate (Morphine Sulfate) 4 mg 1X ONCE IV Last administered on at 11:47; Start 01/20/18 at 12:00; Stop 01/20/18 at 12:01; Status DC Ondansetron HCl (Zofran) 4 mg 1X ONCE IV Last administered on 01/20/18at 11:47 ; Start 01/20/18 at 12:00; Stop 01/20/18 at 12:01; Status DC Vancomycin HCl 2 gm/Sodium Chloride 500 ml @ 250 mls/hr 1X ONCE IV Last administered on 01/20/18at 13:32; Start 01/20/18 at 13:30; Stop 01/20/18 at 15:29 ; Status DC Cefazolin Sodium 50 ml @ 100 mls/hr 1X ONCE IV Last administered on at 12:59; Start 01/20/18 at 13:00; Stop 01/20/18 at 13:29; Status DC Ondansetron HCl (Zofran) 4 mg PRN Q8HRS PRN IV NAUSEA/VOMITING; Start 01/20/18 at 12:45; Stop 01/21/18 at 12:44; Status DC Morphine Sulfate (Morphine Sulfate) 2 mg PRN Q2HR PRN IV PAIN Last administered on 01/21/18at 05:46; Start 01/20/18 at 12:45; Stop 01/21/18 at 12:44 ; Status DC Acetaminophen (Tylenol) 650 mg PRN Q4HRS PRN PO FEVER; Start 01/20/18 at 12:45 ; Stop 01/21/18 at 12:44; Status DC Vancomycin HCl (Vanco Per Pharmacy) 1 each PRN DAILY PRN MC SEE COMMENTS Last administered on 01/21/18at 14:49; Start 01/20/18 at 17:15 Vancomycin HCl 1.5 gm/Sodium Chloride 500 ml @ 250 mls/hr Q8H IV Last administered on 01/21/18at 14:46; Start 01/20/18 at 21:30; Stop 01/21/18 at 14:48 ; Status DC Vancomycin HCl (Vancomycin Trough Level) 1 each 1X ONCE MC ; Start 01/21/18 at 13:00; Stop 01/21/18 at 13:01; Status DC Ondansetron HCl (Zofran) 4 mg PRN Q6HRS PRN IV NAUSEA/VOMITING; Start 01/21/18 at 09:45; Stop 01/22/18 at 09:44; Status DC Fentanyl Citrate (Fentanyl 2ml Vial) 25 mcg PRN Q5MIN PRN IV MILD PAIN; Start 01/21/18 at 09:45; Stop 01/21/18 at 23:00; Status DC Fentanyl Citrate (Fentanyl 2ml Vial) 50 mcg PRN Q5MIN PRN IV MODERATE TO SEVERE PAIN Last administered on 01/21/18at 16:09; Start 01/21/18 at 09:45; Stop 01/21/18 at 23:00; Status DC Morphine Sulfate (Morphine Sulfate) 1 mg PRN Q10MIN PRN IV SEVERE PAIN; Start 01/21/18 at 09:45; Stop 01/21/18 at 23:00; Status DC Ringer's Solution 1,000 ml @ 30 mls/hr Q24H IV Last administered on 01/21/18at 12:36; Start 01/21/18 at 09:45; Stop 01/21/18 at 21:44; Status DC Lidocaine HCl (Xylocaine-Mpf 1% 2ml Vial) 2 ml 1X PRN PRN ID IV START; Start at 09:45; Stop 01/21/18 at 23:00; Status DC Hydromorphone HCl (Dilaudid) 0.5 mg PRN Q10MIN PRN IV SEV PAIN, Second choice; Start 01/21/18 at 09:45; Stop 01/21/18 at 23:00; Status DC Prochlorperazine Edisylate (Compazine) 5 mg PACU PRN PRN IV NAUSEA, MRX1; Start 01/21/18 at 09:45; Stop 01/21/18 at 23:00; Status DC Lactobacillus Rhamnosus (Culturelle) 1 cap BID PO Last administered on at 22:19; Start 01/21/18 at 21:00 Propofol 20 ml @ As Directed STK-MED ONCE IV ; Start 01/21/18 at 12:30; Stop at 19:54; Status DC Lidocaine HCl (Lidocaine Pf 2% Vial) 5 ml STK-MED ONCE .ROUTE ; Start 01/21/18 at 12:30; Stop 01/21/18 at 12:31; Status DC Scopolamine (Transderm-Scop) 1 patch 1X ONCE TD Last administered on at 13:13; Start 01/21/18 at 13:30; Stop 01/21/18 at 13:31; Status DC Lidocaine HCl (Xylocaine 1% Pf 30ml Vial) 30 ml STK-MED ONCE .ROUTE Last administered on 01/21/18at 14:58; Start 01/21/18 at 12:15; Stop 01/21/18 at 13:16 ; Status DC Bupivacaine HCl (Marcaine 0.5%) 50 ml STK-MED ONCE .ROUTE Last administered on 01/21/18at 14:58; Start 01/21/18 at 12:15; Stop 01/21/18 at 13:16; Status DC Dexamethasone Sodium Phosphate (Decadron) 20 mg STK-MED ONCE .ROUTE ; Start at 14:20; Stop 01/21/18 at 14:21; Status DC Famotidine (Pepcid Vial) 20 mg STK-MED ONCE .ROUTE ; Start 01/21/18 at 14:20; Stop 01/21/18 at 14:21; Status DC Ondansetron HCl (Zofran) 4 mg STK-MED ONCE .ROUTE ; Start 01/21/18 at 14:20; Stop 01/21/18 at 14:21; Status DC Fentanyl Citrate (Fentanyl 2ml Vial) 100 mcg STK-MED ONCE .ROUTE ; Start at 14:20; Stop 01/21/18 at 14:22; Status DC Midazolam HCl (Versed) 2 mg STK-MED ONCE .ROUTE ; Start 01/21/18 at 14:20; Stop 01/21/18 at 14:22; Status DC Fentanyl Citrate (Fentanyl 2ml Vial) 100 mcg STK-MED ONCE .ROUTE ; Start at 14:46; Stop 01/21/18 at 14:47; Status DC Vancomycin HCl 1.75 gm/Sodium Chloride 500 ml @ 250 mls/hr Q8H IV Last administered on 01/22/18at 06:13; Start 01/21/18 at 15:00 Isoflurane (Isoflurane) 60 ml STK-MED ONCE IH ; Start 01/21/18 at 14:55; Stop at 14:56; Status DC Sevoflurane (Ultane) 30 ml STK-MED ONCE IH ; Start 01/21/18 at 15:00; Stop 01/21 at 15:01; Status DC Fentanyl Citrate (Fentanyl 2ml Vial) 100 mcg STK-MED ONCE .ROUTE ; Start at 15:43; Stop 01/21/18 at 15:44; Status DC Morphine Sulfate (Morphine Sulfate) 2 mg PRN Q2HR PRN IV PAIN Last administered on 01/22/18at 09:07; Start 01/22/18 at 08:30 Acetaminophen/ Hydrocodone Bitart (Lortab 7.5/325) 1 tab PRN Q4HRS PRN PO PAIN Last administered on 01/22/18at 09:07; Start 01/22/18 at 09:00 Vitals/I & O Vital Sign - Last 24 Hours 01/21/18 01/21/18 01/21/18 01/21/18 13:00 15:09 15:09 15:24 Temp 100.0 99.4 100.0 99.4 Pulse 82 76 78 Resp 20 24 24 B/P (MAP) 179/96 142/79 160/92 Pulse Ox 97 96 98 O2 Delivery Room Air Simple Mask Mask Simple Mask O2 Flow Rate 8 8 8 01/21/18 01/21/18 01/21/18 01/21/18 15:39 15:49 15:54 16:09 Temp 99.8 99.8 99.8 99.8 Pulse 78 84 80 Resp 24 24 24 22 B/P (MAP) 164/102 164/93 146/91 Pulse Ox 98 92 97 O2 Delivery Simple Mask Simple Mask Room Air Nasal Cannula O2 Flow Rate 8 8.0 2 01/21/18 01/21/18 01/21/18 01/21/18 16:09 16:13 18:45 19:45 Temp 98.4 98.4 Pulse 74 Resp 24 20 20 B/P (MAP) 156/68 (97) Pulse Ox 92 98 96 O2 Delivery Room Air Mask Room Air Room Air O2 Flow Rate 2 01/21/18 01/21/18 01/22/18 01/22/18 20:15 23:45 03:45 07:46 Temp 98.4 98.0 97.7 98.4 98.0 97.7 Pulse 71 69 64 Resp 20 20 20 B/P (MAP) 126/66 (86) 131/71 (91) 140/87 (104) Pulse Ox 98 97 97 O2 Delivery Mask Room Air Room Air Room Air O2 Flow Rate 2.0 Intake and Output 01/21/18 01/21/18 01/22/18 15:00 23:00 07:00 Intake Total 853 ml 650 ml Output Total 5 ml 0 ml Balance 848 ml 650 ml SMITH SAUER MD Jan 22, 2018 11:37
[2018-01-22 11:38] VITALS: BP 128/77
--- NOTE | 2018-01-22 12:22 | PDOC ---
Infectious Disease Note Vital Sign Vital Signs Vital Signs Date Time Temp Pulse Resp B/P (MAP) Pulse Ox O2 Delivery O2 Flow Rate FiO2 01/22/18 11:38 97.7 63 20 128/77 (94) 95 Room Air 97.7 01/21/18 20:15 2.0 Physical Exam PHYSICAL EXAM GENERAL: The patient is sitting in a chair, alert, smiling and joking. VITAL SIGNS: stable HEENT: Normal conjunctivae. Oral mucosa is pink and moist. NECK: Supple. LUNGS: Clear to auscultation. HEART: S1, S2. ABDOMEN: Obese. Bowel sounds active. Soft, nontender. EXTREMITIES: No gross edema or cyanosis. Right index finger tip a little swollen with some peeling skin and dry blood. His left hand is markedly swollen, warm with mild erythema. post surgery dressing not opened SKIN: Warm without rash. NEUROLOGIC: Alert and oriented x 3. Labs Lab Laboratory Tests Test 01/21/18 14:00 01/22/18 03:00 Vancomycin Level Trough 7.5 mcg/mL (10.0-20.0) Vancomycin Last Dose Date 01/21/18 Vancomycin Last Dose Time 0600 Sodium Level 137 mmol/L (136-145) Potassium Level 4.1 mmol/L (3.5-5.1) Chloride Level 104 mmol/L (98-107) Carbon Dioxide Level 27 mmol/L (21-32) Anion Gap 6 (6-14) Blood Urea Nitrogen 8 mg/dL (8-26) Creatinine 0.7 mg/dL (0.7-1.3) Estimated GFR (Cockcroft-Gault) 118.4 Glucose Level 181 mg/dL (70-99) Calcium Level 7.7 mg/dL (8.5-10.1) Micro culture pending Objective Assessment 1. Cellulitis of the left hand. 2. PENICILLIN allergy causing WELTS. 3. Hypertension. Plan Plan of Care Continue vancomycin and rocephine Monitor response as well renal functio closely Ortho has been consulted ANGI SALCEDO MD Jan 22, 2018 12:22
[2018-01-22] MEDS: LACTOBACILLUS RHAMNOSUS GG 1 CAPSULE. PO SCH ×2 (13:32→21:12)
[2018-01-22] MEDS: cefTRIAXone IV Push 1 GM VIAL. IVP SCH (13:33)
--- NOTE | 2018-01-22 15:22 | PDOC ---
ORTHO PROGRESS NOTES Subjective He tells me his pain is much better today. Vitals Vital Signs Date Time Temp Pulse Resp B/P (MAP) Pulse Ox O2 Delivery O2 Flow Rate FiO2 01/22/18 11:38 97.7 63 20 128/77 (94) 95 Room Air 97.7 01/21/18 20:15 2.0 Labs Laboratory Tests Test 01/21/18 05:15 01/21/18 05:16 01/21/18 14:00 01/22/18 03:00 White Blood Count 11.8 x10^3/uL (4.0-11.0) Red Blood Count 4.72 x10^6/uL (4.30-5.70) Hemoglobin 16.1 g/dL (13.0-17.5) Hematocrit 45.3 % (39.0-53.0) Mean Corpuscular Volume 96 fL (79-100) Mean Corpuscular Hemoglobin 34 pg (25-35) Mean Corpuscular Hemoglobin Concent 35 g/dL (31-37) Red Cell Distribution Width 13.2 % (11.5-14.5) Platelet Count 245 x10^3/uL (140-400) Neutrophils (%) (Auto) 76 % (31-73) Lymphocytes (%) (Auto) 14 % (24-48) Monocytes (%) (Auto) 8 % (0-9) Eosinophils (%) (Auto) 1 % (0-3) Basophils (%) (Auto) 1 % (0-3) Neutrophils # (Auto) 9.0 x10^3uL (1.8-7.7) Lymphocytes # (Auto) 1.7 x10^3/uL (1.0-4.8) Monocytes # (Auto) 1.0 x10^3/uL (0.0-1.1) Eosinophils # (Auto) 0.1 x10^3/uL (0.0-0.7) Basophils # (Auto) 0.1 x10^3/uL (0.0-0.2) Sodium Level 137 mmol/L (136-145) 137 mmol/L (136-145) Potassium Level 4.0 mmol/L (3.5-5.1) 4.1 mmol/L (3.5-5.1) Chloride Level 102 mmol/L (98-107) 104 mmol/L (98-107) Carbon Dioxide Level 28 mmol/L (21-32) 27 mmol/L (21-32) Anion Gap 7 (6-14) 6 (6-14) Blood Urea Nitrogen 5 mg/dL (8-26) 8 mg/dL (8-26) Creatinine 0.8 mg/dL (0.7-1.3) 0.7 mg/dL (0.7-1.3) Estimated GFR (Cockcroft-Gault) 101.5 118.4 BUN/Creatinine Ratio 6 (6-20) Glucose Level 130 mg/dL (70-99) 181 mg/dL (70-99) Calcium Level 8.4 mg/dL (8.5-10.1) 7.7 mg/dL (8.5-10.1) Total Bilirubin 1.1 mg/dL (0.2-1.0) Aspartate Amino Transf (AST/SGOT) 14 U/L (15-37) Alanine Aminotransferase (ALT/SGPT) 24 U/L (16-63) Alkaline Phosphatase 81 U/L (46-116) Total Protein 7.0 g/dL (6.4-8.2) Albumin 3.0 g/dL (3.4-5.0) Albumin/Globulin Ratio 0.8 (1.0-1.7) Vancomycin Level Trough 7.5 mcg/mL (10.0-20.0) Vancomycin Last Dose Date 01/21/18 Vancomycin Last Dose Time 0600 Laboratory Tests Test 01/22/18 03:00 Sodium Level 137 mmol/L (136-145) Potassium Level 4.1 mmol/L (3.5-5.1) Chloride Level 104 mmol/L (98-107) Carbon Dioxide Level 27 mmol/L (21-32) Anion Gap 6 (6-14) Blood Urea Nitrogen 8 mg/dL (8-26) Creatinine 0.7 mg/dL (0.7-1.3) Estimated GFR (Cockcroft-Gault) 118.4 Glucose Level 181 mg/dL (70-99) Calcium Level 7.7 mg/dL (8.5-10.1) Notes Less edema and improved appearance of his hand and wrist today. Still has some erythema and edema present. Bloody drainage, expected, from dorsum of hand Assessment and Plan He will continue antibiotics per infectious disease. Discuss dressing change in my care plan with his nurse. We will follow along with his hospital course. ADRIAN MASTERSON II, MD Jan 22, 2018 15:22
[2018-01-22 15:30] VITALS: BP 139/70
[2018-01-22 19:25] VITALS: BP 153/72
[2018-01-22 23:30] VITALS: BP 133/78
[2018-01-23 03:30] VITALS: BP 138/88
[2018-01-23 07:51] LABS: VANC TR 14.9 mcg/mL (10.0-20.0)
[2018-01-23 07:52] VITALS: BP 172/95
[2018-01-23] MEDS: VANCOMYCIN PER PHARMACY MC PRN ×2 (08:09→08:14)
[2018-01-23] MEDS: HYDROcodone/APAP 7.5/325MG 1 TAB TABLET PO PRN ×3 (08:23→21:07)
[2018-01-23] MEDS: LACTOBACILLUS RHAMNOSUS GG 1 CAPSULE. PO SCH ×2 (08:23→21:06)
[2018-01-23] MEDS: VANCOMYCIN 1.75 GM in IV NORMAL SALINE 500ML BAG 500 ML IV SCH ×3 (08:24→23:49)
--- NOTE | 2018-01-23 10:33 | PDOC ---
PROGRESS NOTES Chief Complaint Chief Complaint smashed his right index finger at work. some pain and swelling Three days ago, he woke with swelling of his left hand. History of Present Illness History of Present Illness Assessment marked Cellulitis of left hand POST I/D PCN allergy - Hypertension Morbid obesity hyperglycemia Plan a1c, accuchecks Continue vancomycin, ROCEPHIN am cbc, bmp Ortho FOLLOWING Vitals Vitals Vital Signs Date Time Temp Pulse Resp B/P (MAP) Pulse Ox O2 Delivery O2 Flow Rate FiO2 01/23/18 08:23 95 Room Air 2.0 01/23/18 07:52 99.7 69 18 172/95 (120) 99.7 Physical Exam Physical Exam GENERAL: The patient is sitting in a chair, alert, smiling and joking. VITAL SIGNS: stable HEENT: Normal conjunctivae. Oral mucosa is pink and moist. NECK: Supple. LUNGS: Clear to auscultation. HEART: S1, S2. ABDOMEN: Obese. Bowel sounds active. Soft, nontender. EXTREMITIES: No gross edema or cyanosis. Right index finger tip a little swollen with some peeling skin and dry blood. His left hand is markedly swollen, warm with mild erythema. post surgery dressing not opened SKIN: Warm without rash. NEUROLOGIC: Alert and oriented x 3. General: Alert, Oriented X3, Cooperative, mild distress, moderate distress Heart: Regular rate, Normal S1, Normal S2 Lungs: Clear Abdomen: Normal bowel sounds, Soft Extremities: No clubbing, No cyanosis Skin: Other (HAND WRAPPED, DRY) Labs LABS Laboratory Tests Test 01/23/18 06:40 Vancomycin Level Trough 14.9 mcg/mL (10.0-20.0) Vancomycin Last Dose Date 01/22/18 Vancomycin Last Dose Time 2300 Assessment and Plan Assessmemt and Plan Problems Medical Problems: (1) Cellulitis of hand Status: Acute Comment Review of Relevant I have reviewed the following items sammy (where applicable) has been applied. Labs Laboratory Tests Test 01/21/18 14:00 01/22/18 03:00 01/23/18 06:40 Vancomycin Level Trough 7.5 mcg/mL (10.0-20.0) 14.9 mcg/mL (10.0-20.0) Vancomycin Last Dose Date 01/21/18 01/22/18 Vancomycin Last Dose Time 0600 2300 Sodium Level 137 mmol/L (136-145) Potassium Level 4.1 mmol/L (3.5-5.1) Chloride Level 104 mmol/L (98-107) Carbon Dioxide Level 27 mmol/L (21-32) Anion Gap 6 (6-14) Blood Urea Nitrogen 8 mg/dL (8-26) Creatinine 0.7 mg/dL (0.7-1.3) Estimated GFR (Cockcroft-Gault) 118.4 Glucose Level 181 mg/dL (70-99) Calcium Level 7.7 mg/dL (8.5-10.1) Laboratory Tests Test 01/23/18 06:40 Vancomycin Level Trough 14.9 mcg/mL (10.0-20.0) Vancomycin Last Dose Date 01/22/18 Vancomycin Last Dose Time 2300 Microbiology 01/21/18 Anaerobic/Aerobic Culture, Resulted Pending 01/21/18 Anaerobic Culture Result 1 (ARGELIA), Resulted Pending 01/21/18 Aerobic Culture, Resulted Pending 01/21/18 Aerobic Culture Result 1 (ARGELIA), Resulted Pending 01/21/18 Gram Stain - Final, Resulted 01/21/18 Gram Stain Result 1 (ARGELIA) - Final, Resulted 01/21/18 Gram Stain Result 2 (ARGELIA) - Final, Resulted Medications Current Medications Morphine Sulfate (Morphine Sulfate) 4 mg 1X ONCE IV Last administered on at 11:47; Start 01/20/18 at 12:00; Stop 01/20/18 at 12:01; Status DC Ondansetron HCl (Zofran) 4 mg 1X ONCE IV Last administered on 01/20/18at 11:47 ; Start 01/20/18 at 12:00; Stop 01/20/18 at 12:01; Status DC Vancomycin HCl 2 gm/Sodium Chloride 500 ml @ 250 mls/hr 1X ONCE IV Last administered on 01/20/18at 13:32; Start 01/20/18 at 13:30; Stop 01/20/18 at 15:29 ; Status DC Cefazolin Sodium 50 ml @ 100 mls/hr 1X ONCE IV Last administered on at 12:59; Start 01/20/18 at 13:00; Stop 01/20/18 at 13:29; Status DC Ondansetron HCl (Zofran) 4 mg PRN Q8HRS PRN IV NAUSEA/VOMITING; Start 01/20/18 at 12:45; Stop 01/21/18 at 12:44; Status DC Morphine Sulfate (Morphine Sulfate) 2 mg PRN Q2HR PRN IV PAIN Last administered on 01/21/18at 05:46; Start 01/20/18 at 12:45; Stop 01/21/18 at 12:44 ; Status DC Acetaminophen (Tylenol) 650 mg PRN Q4HRS PRN PO FEVER; Start 01/20/18 at 12:45 ; Stop 01/21/18 at 12:44; Status DC Vancomycin HCl (Vanco Per Pharmacy) 1 each PRN DAILY PRN MC SEE COMMENTS Last administered on 01/23/18at 08:14; Start 01/20/18 at 17:15 Vancomycin HCl 1.5 gm/Sodium Chloride 500 ml @ 250 mls/hr Q8H IV Last administered on 01/21/18at 14:46; Start 01/20/18 at 21:30; Stop 01/21/18 at 14:48 ; Status DC Vancomycin HCl (Vancomycin Trough Level) 1 each 1X ONCE MC ; Start 01/21/18 at 13:00; Stop 01/21/18 at 13:01; Status DC Ondansetron HCl (Zofran) 4 mg PRN Q6HRS PRN IV NAUSEA/VOMITING; Start 01/21/18 at 09:45; Stop 01/22/18 at 09:44; Status DC Fentanyl Citrate (Fentanyl 2ml Vial) 25 mcg PRN Q5MIN PRN IV MILD PAIN; Start 01/21/18 at 09:45; Stop 01/21/18 at 23:00; Status DC Fentanyl Citrate (Fentanyl 2ml Vial) 50 mcg PRN Q5MIN PRN IV MODERATE TO SEVERE PAIN Last administered on 01/21/18at 16:09; Start 01/21/18 at 09:45; Stop 01/21/18 at 23:00; Status DC Morphine Sulfate (Morphine Sulfate) 1 mg PRN Q10MIN PRN IV SEVERE PAIN; Start 01/21/18 at 09:45; Stop 01/21/18 at 23:00; Status DC Ringer's Solution 1,000 ml @ 30 mls/hr Q24H IV Last administered on 01/21/18at 12:36; Start 01/21/18 at 09:45; Stop 01/21/18 at 21:44; Status DC Lidocaine HCl (Xylocaine-Mpf 1% 2ml Vial) 2 ml 1X PRN PRN ID IV START; Start at 09:45; Stop 01/21/18 at 23:00; Status DC Hydromorphone HCl (Dilaudid) 0.5 mg PRN Q10MIN PRN IV SEV PAIN, Second choice; Start 01/21/18 at 09:45; Stop 01/21/18 at 23:00; Status DC Prochlorperazine Edisylate (Compazine) 5 mg PACU PRN PRN IV NAUSEA, MRX1; Start 01/21/18 at 09:45; Stop 01/21/18 at 23:00; Status DC Lactobacillus Rhamnosus (Culturelle) 1 cap BID PO Last administered on at 08:23; Start 01/21/18 at 21:00 Propofol 20 ml @ As Directed STK-MED ONCE IV ; Start 01/21/18 at 12:30; Stop at 19:54; Status DC Lidocaine HCl (Lidocaine Pf 2% Vial) 5 ml STK-MED ONCE .ROUTE ; Start 01/21/18 at 12:30; Stop 01/21/18 at 12:31; Status DC Scopolamine (Transderm-Scop) 1 patch 1X ONCE TD Last administered on at 13:13; Start 01/21/18 at 13:30; Stop 01/21/18 at 13:31; Status DC Lidocaine HCl (Xylocaine 1% Pf 30ml Vial) 30 ml STK-MED ONCE .ROUTE Last administered on 01/21/18at 14:58; Start 01/21/18 at 12:15; Stop 01/21/18 at 13:16 ; Status DC Bupivacaine HCl (Marcaine 0.5%) 50 ml STK-MED ONCE .ROUTE Last administered on 01/21/18at 14:58; Start 01/21/18 at 12:15; Stop 01/21/18 at 13:16; Status DC Dexamethasone Sodium Phosphate (Decadron) 20 mg STK-MED ONCE .ROUTE ; Start at 14:20; Stop 01/21/18 at 14:21; Status DC Famotidine (Pepcid Vial) 20 mg STK-MED ONCE .ROUTE ; Start 01/21/18 at 14:20; Stop 01/21/18 at 14:21; Status DC Ondansetron HCl (Zofran) 4 mg STK-MED ONCE .ROUTE ; Start 01/21/18 at 14:20; Stop 01/21/18 at 14:21; Status DC Fentanyl Citrate (Fentanyl 2ml Vial) 100 mcg STK-MED ONCE .ROUTE ; Start at 14:20; Stop 01/21/18 at 14:22; Status DC Midazolam HCl (Versed) 2 mg STK-MED ONCE .ROUTE ; Start 01/21/18 at 14:20; Stop 01/21/18 at 14:22; Status DC Fentanyl Citrate (Fentanyl 2ml Vial) 100 mcg STK-MED ONCE .ROUTE ; Start at 14:46; Stop 01/21/18 at 14:47; Status DC Vancomycin HCl 1.75 gm/Sodium Chloride 500 ml @ 250 mls/hr Q8H IV Last administered on 01/23/18at 08:24; Start 01/21/18 at 15:00 Isoflurane (Isoflurane) 60 ml STK-MED ONCE IH ; Start 01/21/18 at 14:55; Stop at 14:56; Status DC Sevoflurane (Ultane) 30 ml STK-MED ONCE IH ; Start 01/21/18 at 15:00; Stop 01/21 at 15:01; Status DC Fentanyl Citrate (Fentanyl 2ml Vial) 100 mcg STK-MED ONCE .ROUTE ; Start at 15:43; Stop 01/21/18 at 15:44; Status DC Morphine Sulfate (Morphine Sulfate) 2 mg PRN Q2HR PRN IV PAIN Last administered on 01/22/18at 09:07; Start 01/22/18 at 08:30 Acetaminophen/ Hydrocodone Bitart (Lortab 7.5/325) 1 tab PRN Q4HRS PRN PO PAIN Last administered on 01/23/18at 08:23; Start 01/22/18 at 09:00 Ceftriaxone Sodium 1 gm/ Dextrose 50 ml @ 100 mls/hr Q24H IV ; Start 01/22/18 at 12:30; Stop 01/22/18 at 12:30; Status DC Ceftriaxone Sodium (Rocephin) 1 gm Q24H IVP Last administered on 01/22/18at 13: 33; Start 01/22/18 at 13:00 Vancomycin HCl (Vancomycin Trough Level) 1 each 1X ONCE MC Last administered on 01/23/18at 06:30; Start 01/23/18 at 06:30; Stop 01/23/18 at 06:31; Status DC Vitals/I & O Vital Sign - Last 24 Hours 01/22/18 01/22/18 01/22/18 01/22/18 11:38 15:30 19:25 20:00 Temp 97.7 98.1 98.7 97.7 98.1 98.7 Pulse 63 64 74 Resp 20 20 18 B/P (MAP) 128/77 (94) 139/70 (93) 153/72 (99) Pulse Ox 95 96 93 O2 Delivery Room Air Room Air Room Air Room Air O2 Flow Rate 2.0 01/22/18 01/22/18 01/22/18 01/23/18 21:12 22:12 23:30 03:30 Temp 98.5 98.3 98.5 98.3 Pulse 62 69 Resp 18 18 18 18 B/P (MAP) 133/78 (96) 138/88 (105) Pulse Ox 98 96 93 93 O2 Delivery Room Air Nasal Cannula Room Air Room Air 01/23/18 01/23/18 01/23/18 07:52 08:00 08:23 Temp 99.7 99.7 Pulse 69 Resp 18 B/P (MAP) 172/95 (120) Pulse Ox 95 95 O2 Delivery Room Air Room Air Room Air O2 Flow Rate 2.0 2.0 Intake and Output 01/22/18 01/22/18 01/23/18 15:00 23:00 07:00 Intake Total 750 ml 400 ml Balance 750 ml 400 ml SMITH SAUER MD Jan 23, 2018 10:33
--- NOTE | 2018-01-23 10:41 | PDOC ---
Infectious Disease Note Subjective Subjective pt is feeling good ROS ROS no n/v/d/sob Vital Sign Vital Signs Vital Signs Date Time Temp Pulse Resp B/P (MAP) Pulse Ox O2 Delivery O2 Flow Rate FiO2 01/23/18 08:23 95 Room Air 2.0 01/23/18 07:52 99.7 69 18 172/95 (120) 99.7 Physical Exam PHYSICAL EXAM GENERAL: The patient is sitting in a chair, alert, smiling and joking. VITAL SIGNS: stable HEENT: Normal conjunctivae. Oral mucosa is pink and moist. NECK: Supple. LUNGS: Clear to auscultation. HEART: S1, S2. ABDOMEN: Obese. Bowel sounds active. Soft, nontender. EXTREMITIES: left arm swelling better, incision looks good, slight bloody discharge, no redness, no purulence SKIN: Warm without rash. NEUROLOGIC: Alert and oriented x 3. Labs Lab Laboratory Tests Test 01/23/18 06:40 Vancomycin Level Trough 14.9 mcg/mL (10.0-20.0) Vancomycin Last Dose Date 01/22/18 Vancomycin Last Dose Time 2300 Micro Procedure Result ANAEROBIC-AEROBIC CULTURE PENDING ANAEROBIC RES 1 PENDING AEROBIC CULT PENDING AEROBIC RES 1 PENDING GRAM STAIN Final Final report GRAM STAIN RES 1 Final Comment No white blood cells seen. GRAM STAIN RES 2 Final No organisms seen Performed at: [facility] [address], [place], [place] [id number] Transportation Manager: DIEGO Massey MD, Phone: [phone] Objective Assessment 1. Cellulitis of the left hand. s/p I and d 2. PENICILLIN allergy causing WELTS. 3. Hypertension. Plan Plan of Care d/c ok on po doxy pt to call my office in 1-2 days to check on culture just in case we have to change antibiotics f/u with me in 1 wk ANGI SALCEDO MD Jan 23, 2018 10:41
[2018-01-23 11:49] VITALS: BP 168/94
--- NOTE | 2018-01-23 12:05 | PDOC ---
ORTHO PROGRESS NOTES Subjective His hand feels good. He says he has a very little bit of pain, he feels that his hand, no pain in the forearm now. Vitals Vital Signs Date Time Temp Pulse Resp B/P (MAP) Pulse Ox O2 Delivery O2 Flow Rate FiO2 01/23/18 11:49 99.3 69 18 168/94 (118) 97 Room Air 99.3 01/23/18 09:23 2.0 Labs Laboratory Tests Test 01/21/18 14:00 01/22/18 03:00 01/23/18 06:40 Vancomycin Level Trough 7.5 mcg/mL (10.0-20.0) 14.9 mcg/mL (10.0-20.0) Vancomycin Last Dose Date 01/21/18 01/22/18 Vancomycin Last Dose Time 0600 2300 Sodium Level 137 mmol/L (136-145) Potassium Level 4.1 mmol/L (3.5-5.1) Chloride Level 104 mmol/L (98-107) Carbon Dioxide Level 27 mmol/L (21-32) Anion Gap 6 (6-14) Blood Urea Nitrogen 8 mg/dL (8-26) Creatinine 0.7 mg/dL (0.7-1.3) Estimated GFR (Cockcroft-Gault) 118.4 Glucose Level 181 mg/dL (70-99) Calcium Level 7.7 mg/dL (8.5-10.1) Laboratory Tests Test 01/23/18 06:40 Vancomycin Level Trough 14.9 mcg/mL (10.0-20.0) Vancomycin Last Dose Date 01/22/18 Vancomycin Last Dose Time 2300 Notes Small amount of bloody drainage, not unusual. No purulence. Erythema and soft tissues overall looked better at his hand. Good range of motion is present in his fingers Assessment and Plan From my standpoint, I do not anticipate any further need for surgical intervention. I think he is okay to be discharged home. He should follow up in 2 weeks in my clinic. ADRIAN MASTERSON II, MD Jan 23, 2018 12:05
[2018-01-23] MEDS: cefTRIAXone IV Push 1 GM VIAL. IVP SCH (13:04)
[2018-01-23 14:21] LABS: CALCIUM 7.7 mg/dL (8.5-10.1); CREATININE 0.7 mg/dL (0.7-1.3); GFR 118.4; POTASSIUM 3.6 mmol/L (3.5-5.1)
[2018-01-23 15:26] VITALS: BP 176/92
[2018-01-23 19:55] VITALS: BP 171/94
[2018-01-23 23:26] VITALS: BP 150/79
[2018-01-24] MEDS: HYDROcodone/APAP 7.5/325MG 1 TAB TABLET PO PRN ×3 (02:56→13:11)
[2018-01-24 03:10] VITALS: BP 162/100
[2018-01-24 04:27] LABS: BASO # 0.1 x10^3/uL (0.0-0.2); BASO % 1 % (0-3); EOS # 0.1 x10^3/uL (0.0-0.7); EOS % 1 % (0-3); HEMATOCRIT 42.2 % (39.0-53.0); HEMOGLOBIN 14.8 g/dL (13.0-17.5); LYMPH # 2.2 x10^3/uL (1.0-4.8); LYMPH % 25 % (24-48); MEAN CORPUSCULAR HEMOGLOBIN 34 pg (25-35); MEAN CORPUSCULAR HGB CONC 35 g/dL (31-37); MEAN CORPUSCULAR VOLUME 96 fL (79-100); MONO # 0.9 x10^3/uL (0.0-1.1); MONO % 10 % (0-9); NEUT # 5.8 x10^3uL (1.8-7.7); NEUT % 64 % (31-73); PLATELET COUNT 249 x10^3/uL (140-400); RED BLOOD COUNT 4.39 x10^6/uL (4.30-5.70); RED CELL DISTRIBUTION WIDTH 13.2 % (11.5-14.5); WHITE BLOOD COUNT 9.1 x10^3/uL (4.0-11.0)
[2018-01-24] MEDS: VANCOMYCIN 1.75 GM in IV NORMAL SALINE 500ML BAG 500 ML IV SCH (06:58)
[2018-01-24 07:58] VITALS: BP 176/98
[2018-01-24] MEDS: LACTOBACILLUS RHAMNOSUS GG 1 CAPSULE. PO SCH (08:13)
[2018-01-24] MEDS ORDERED: cloNIDine HCL 0.2 MG TABLET PO ONE (10:30)
--- NOTE | 2018-01-24 10:32 | PDOC ---
PROGRESS NOTES Chief Complaint Chief Complaint smashed his right index finger at work. some pain and swelling Three days ago, he woke with swelling of his left hand. History of Present Illness History of Present Illness Assessment marked Cellulitis of left hand POST I/D PCN allergy - Hypertension, uncontrolled, will give clonidine 0.2 mg po x 1 now Morbid obesity hyperglycemia, a1c ordered Plan a1c, accuchecks d/c vancomycin, ROCEPHIN begin doxycycline 100mg po bid home later today when bp better Ortho FOLLOWING Vitals Vitals Vital Signs Date Time Temp Pulse Resp B/P (MAP) Pulse Ox O2 Delivery O2 Flow Rate FiO2 01/24/18 07:59 18 Room Air 01/24/18 07:58 98.0 66 176/98 (124) 99 98.0 01/23/18 09:23 2.0 Physical Exam Physical Exam GENERAL: alert, smiling VITAL SIGNS: bp high HEENT: Normal conjunctivae. Oral mucosa is pink and moist. NECK: Supple. LUNGS: Clear to auscultation. HEART: S1, S2. ABDOMEN: Obese. Bowel sounds active. Soft, nontender. EXTREMITIES: left arm swelling better, SKIN: Warm without rash. NEUROLOGIC: Alert and oriented x 3. General: Alert, Oriented X3, Cooperative, No acute distress, mild distress, moderate distress Heart: Regular rate, Normal S1, Normal S2, No murmurs Lungs: Clear Abdomen: Normal bowel sounds, Soft Extremities: No clubbing, No cyanosis, Normal pulses Skin: Other (HAND WRAPPED, DRY, elevated) Labs LABS Laboratory Tests Test 01/23/18 17:01 01/23/18 20:49 01/24/18 03:15 01/24/18 07:45 Glucose (Fingerstick) 109 mg/dL (70-99) 128 mg/dL (70-99) 96 mg/dL (70-99) White Blood Count 9.1 x10^3/uL (4.0-11.0) Red Blood Count 4.39 x10^6/uL (4.30-5.70) Hemoglobin 14.8 g/dL (13.0-17.5) Hematocrit 42.2 % (39.0-53.0) Mean Corpuscular Volume 96 fL (79-100) Mean Corpuscular Hemoglobin 34 pg (25-35) Mean Corpuscular Hemoglobin Concent 35 g/dL (31-37) Red Cell Distribution Width 13.2 % (11.5-14.5) Platelet Count 249 x10^3/uL (140-400) Neutrophils (%) (Auto) 64 % (31-73) Lymphocytes (%) (Auto) 25 % (24-48) Monocytes (%) (Auto) 10 % (0-9) Eosinophils (%) (Auto) 1 % (0-3) Basophils (%) (Auto) 1 % (0-3) Neutrophils # (Auto) 5.8 x10^3uL (1.8-7.7) Lymphocytes # (Auto) 2.2 x10^3/uL (1.0-4.8) Monocytes # (Auto) 0.9 x10^3/uL (0.0-1.1) Eosinophils # (Auto) 0.1 x10^3/uL (0.0-0.7) Basophils # (Auto) 0.1 x10^3/uL (0.0-0.2) Assessment and Plan Assessmemt and Plan Problems Medical Problems: (1) Cellulitis of hand Status: Acute Comment Review of Relevant I have reviewed the following items sammy (where applicable) has been applied. Labs Laboratory Tests Test 01/23/18 06:40 01/23/18 17:01 01/23/18 20:49 01/24/18 03:15 Sodium Level 140 mmol/L (136-145) Potassium Level 3.6 mmol/L (3.5-5.1) Chloride Level 106 mmol/L (98-107) Carbon Dioxide Level 27 mmol/L (21-32) Anion Gap 7 (6-14) Blood Urea Nitrogen 10 mg/dL (8-26) Creatinine 0.7 mg/dL (0.7-1.3) Estimated GFR (Cockcroft-Gault) 118.4 Glucose Level 94 mg/dL (70-99) Calcium Level 7.7 mg/dL (8.5-10.1) Vancomycin Level Trough 14.9 mcg/mL (10.0-20.0) Vancomycin Last Dose Date 01/22/18 Vancomycin Last Dose Time 2300 Glucose (Fingerstick) 109 mg/dL (70-99) 128 mg/dL (70-99) White Blood Count 9.1 x10^3/uL (4.0-11.0) Red Blood Count 4.39 x10^6/uL (4.30-5.70) Hemoglobin 14.8 g/dL (13.0-17.5) Hematocrit 42.2 % (39.0-53.0) Mean Corpuscular Volume 96 fL (79-100) Mean Corpuscular Hemoglobin 34 pg (25-35) Mean Corpuscular Hemoglobin Concent 35 g/dL (31-37) Red Cell Distribution Width 13.2 % (11.5-14.5) Platelet Count 249 x10^3/uL (140-400) Neutrophils (%) (Auto) 64 % (31-73) Lymphocytes (%) (Auto) 25 % (24-48) Monocytes (%) (Auto) 10 % (0-9) Eosinophils (%) (Auto) 1 % (0-3) Basophils (%) (Auto) 1 % (0-3) Neutrophils # (Auto) 5.8 x10^3uL (1.8-7.7) Lymphocytes # (Auto) 2.2 x10^3/uL (1.0-4.8) Monocytes # (Auto) 0.9 x10^3/uL (0.0-1.1) Eosinophils # (Auto) 0.1 x10^3/uL (0.0-0.7) Basophils # (Auto) 0.1 x10^3/uL (0.0-0.2) Test 01/24/18 07:45 Glucose (Fingerstick) 96 mg/dL (70-99) Laboratory Tests Test 01/23/18 17:01 01/23/18 20:49 01/24/18 03:15 01/24/18 07:45 Glucose (Fingerstick) 109 mg/dL (70-99) 128 mg/dL (70-99) 96 mg/dL (70-99) White Blood Count 9.1 x10^3/uL (4.0-11.0) Red Blood Count 4.39 x10^6/uL (4.30-5.70) Hemoglobin 14.8 g/dL (13.0-17.5) Hematocrit 42.2 % (39.0-53.0) Mean Corpuscular Volume 96 fL (79-100) Mean Corpuscular Hemoglobin 34 pg (25-35) Mean Corpuscular Hemoglobin Concent 35 g/dL (31-37) Red Cell Distribution Width 13.2 % (11.5-14.5) Platelet Count 249 x10^3/uL (140-400) Neutrophils (%) (Auto) 64 % (31-73) Lymphocytes (%) (Auto) 25 % (24-48) Monocytes (%) (Auto) 10 % (0-9) Eosinophils (%) (Auto) 1 % (0-3) Basophils (%) (Auto) 1 % (0-3) Neutrophils # (Auto) 5.8 x10^3uL (1.8-7.7) Lymphocytes # (Auto) 2.2 x10^3/uL (1.0-4.8) Monocytes # (Auto) 0.9 x10^3/uL (0.0-1.1) Eosinophils # (Auto) 0.1 x10^3/uL (0.0-0.7) Basophils # (Auto) 0.1 x10^3/uL (0.0-0.2) Microbiology 01/21/18 Anaerobic/Aerobic Culture, Resulted Pending 01/21/18 Anaerobic Culture Result 1 (ARGELIA), Resulted Pending 01/21/18 Aerobic Culture - Preliminary, Resulted 01/21/18 Aerobic Culture Result 1 (ARGELIA) - Preliminary, Resulted 01/21/18 Gram Stain - Final, Resulted 01/21/18 Gram Stain Result 1 (ARGELIA) - Final, Resulted 01/21/18 Gram Stain Result 2 (ARGELIA) - Final, Resulted Medications Current Medications Morphine Sulfate (Morphine Sulfate) 4 mg 1X ONCE IV Last administered on at 11:47; Start 01/20/18 at 12:00; Stop 01/20/18 at 12:01; Status DC Ondansetron HCl (Zofran) 4 mg 1X ONCE IV Last administered on 01/20/18at 11:47 ; Start 01/20/18 at 12:00; Stop 01/20/18 at 12:01; Status DC Vancomycin HCl 2 gm/Sodium Chloride 500 ml @ 250 mls/hr 1X ONCE IV Last administered on 01/20/18at 13:32; Start 01/20/18 at 13:30; Stop 01/20/18 at 15:29 ; Status DC Cefazolin Sodium 50 ml @ 100 mls/hr 1X ONCE IV Last administered on at 12:59; Start 01/20/18 at 13:00; Stop 01/20/18 at 13:29; Status DC Ondansetron HCl (Zofran) 4 mg PRN Q8HRS PRN IV NAUSEA/VOMITING; Start 01/20/18 at 12:45; Stop 01/21/18 at 12:44; Status DC Morphine Sulfate (Morphine Sulfate) 2 mg PRN Q2HR PRN IV PAIN Last administered on 01/21/18at 05:46; Start 01/20/18 at 12:45; Stop 01/21/18 at 12:44 ; Status DC Acetaminophen (Tylenol) 650 mg PRN Q4HRS PRN PO FEVER; Start 01/20/18 at 12:45 ; Stop 01/21/18 at 12:44; Status DC Vancomycin HCl (Vanco Per Pharmacy) 1 each PRN DAILY PRN MC SEE COMMENTS Last administered on 01/23/18at 08:14; Start 01/20/18 at 17:15 Vancomycin HCl 1.5 gm/Sodium Chloride 500 ml @ 250 mls/hr Q8H IV Last administered on 01/21/18at 14:46; Start 01/20/18 at 21:30; Stop 01/21/18 at 14:48 ; Status DC Vancomycin HCl (Vancomycin Trough Level) 1 each 1X ONCE MC ; Start 01/21/18 at 13:00; Stop 01/21/18 at 13:01; Status DC Ondansetron HCl (Zofran) 4 mg PRN Q6HRS PRN IV NAUSEA/VOMITING; Start 01/21/18 at 09:45; Stop 01/22/18 at 09:44; Status DC Fentanyl Citrate (Fentanyl 2ml Vial) 25 mcg PRN Q5MIN PRN IV MILD PAIN; Start 01/21/18 at 09:45; Stop 01/21/18 at 23:00; Status DC Fentanyl Citrate (Fentanyl 2ml Vial) 50 mcg PRN Q5MIN PRN IV MODERATE TO SEVERE PAIN Last administered on 01/21/18at 16:09; Start 01/21/18 at 09:45; Stop 01/21/18 at 23:00; Status DC Morphine Sulfate (Morphine Sulfate) 1 mg PRN Q10MIN PRN IV SEVERE PAIN; Start 01/21/18 at 09:45; Stop 01/21/18 at 23:00; Status DC Ringer's Solution 1,000 ml @ 30 mls/hr Q24H IV Last administered on 01/21/18at 12:36; Start 01/21/18 at 09:45; Stop 01/21/18 at 21:44; Status DC Lidocaine HCl (Xylocaine-Mpf 1% 2ml Vial) 2 ml 1X PRN PRN ID IV START; Start at 09:45; Stop 01/21/18 at 23:00; Status DC Hydromorphone HCl (Dilaudid) 0.5 mg PRN Q10MIN PRN IV SEV PAIN, Second choice; Start 01/21/18 at 09:45; Stop 01/21/18 at 23:00; Status DC Prochlorperazine Edisylate (Compazine) 5 mg PACU PRN PRN IV NAUSEA, MRX1; Start 01/21/18 at 09:45; Stop 01/21/18 at 23:00; Status DC Lactobacillus Rhamnosus (Culturelle) 1 cap BID PO Last administered on at 08:13; Start 01/21/18 at 21:00 Propofol 20 ml @ As Directed STK-MED ONCE IV ; Start 01/21/18 at 12:30; Stop at 19:54; Status DC Lidocaine HCl (Lidocaine Pf 2% Vial) 5 ml STK-MED ONCE .ROUTE ; Start 01/21/18 at 12:30; Stop 01/21/18 at 12:31; Status DC Scopolamine (Transderm-Scop) 1 patch 1X ONCE TD Last administered on at 13:13; Start 01/21/18 at 13:30; Stop 01/21/18 at 13:31; Status DC Lidocaine HCl (Xylocaine 1% Pf 30ml Vial) 30 ml STK-MED ONCE .ROUTE Last administered on 01/21/18at 14:58; Start 01/21/18 at 12:15; Stop 01/21/18 at 13:16 ; Status DC Bupivacaine HCl (Marcaine 0.5%) 50 ml STK-MED ONCE .ROUTE Last administered on 01/21/18at 14:58; Start 01/21/18 at 12:15; Stop 01/21/18 at 13:16; Status DC Dexamethasone Sodium Phosphate (Decadron) 20 mg STK-MED ONCE .ROUTE ; Start at 14:20; Stop 01/21/18 at 14:21; Status DC Famotidine (Pepcid Vial) 20 mg STK-MED ONCE .ROUTE ; Start 01/21/18 at 14:20; Stop 01/21/18 at 14:21; Status DC Ondansetron HCl (Zofran) 4 mg STK-MED ONCE .ROUTE ; Start 01/21/18 at 14:20; Stop 01/21/18 at 14:21; Status DC Fentanyl Citrate (Fentanyl 2ml Vial) 100 mcg STK-MED ONCE .ROUTE ; Start at 14:20; Stop 01/21/18 at 14:22; Status DC Midazolam HCl (Versed) 2 mg STK-MED ONCE .ROUTE ; Start 01/21/18 at 14:20; Stop 01/21/18 at 14:22; Status DC Fentanyl Citrate (Fentanyl 2ml Vial) 100 mcg STK-MED ONCE .ROUTE ; Start at 14:46; Stop 01/21/18 at 14:47; Status DC Vancomycin HCl 1.75 gm/Sodium Chloride 500 ml @ 250 mls/hr Q8H IV Last administered on 01/24/18at 06:58; Start 01/21/18 at 15:00 Isoflurane (Isoflurane) 60 ml STK-MED ONCE IH ; Start 01/21/18 at 14:55; Stop at 14:56; Status DC Sevoflurane (Ultane) 30 ml STK-MED ONCE IH ; Start 01/21/18 at 15:00; Stop 01/21 at 15:01; Status DC Fentanyl Citrate (Fentanyl 2ml Vial) 100 mcg STK-MED ONCE .ROUTE ; Start at 15:43; Stop 01/21/18 at 15:44; Status DC Morphine Sulfate (Morphine Sulfate) 2 mg PRN Q2HR PRN IV PAIN Last administered on 01/22/18at 09:07; Start 01/22/18 at 08:30 Acetaminophen/ Hydrocodone Bitart (Lortab 7.5/325) 1 tab PRN Q4HRS PRN PO PAIN Last administered on 01/24/18at 06:59; Start 01/22/18 at 09:00 Ceftriaxone Sodium 1 gm/ Dextrose 50 ml @ 100 mls/hr Q24H IV ; Start 01/22/18 at 12:30; Stop 01/22/18 at 12:30; Status DC Ceftriaxone Sodium (Rocephin) 1 gm Q24H IVP Last administered on 01/23/18at 13: 04; Start 01/22/18 at 13:00 Vancomycin HCl (Vancomycin Trough Level) 1 each 1X ONCE MC Last administered on 01/23/18at 06:30; Start 01/23/18 at 06:30; Stop 01/23/18 at 06:31; Status DC Vitals/I & O Vital Sign - Last 24 Hours 01/23/18 01/23/18 01/23/18 01/23/18 11:49 15:26 15:37 19:55 Temp 99.3 99.7 99.3 99.3 99.7 99.3 Pulse 69 69 74 Resp 18 18 17 16 B/P (MAP) 168/94 (118) 176/92 (120) 171/94 (119) Pulse Ox 97 95 93 O2 Delivery Room Air Room Air Room Air Room Air 01/23/18 01/23/18 01/23/18 01/24/18 20:00 21:07 23:26 02:56 Temp 99.0 99.0 Pulse 72 Resp 16 18 B/P (MAP) 150/79 (102) Pulse Ox 93 94 95 O2 Delivery Room Air Room Air Room Air Room Air 01/24/18 01/24/18 01/24/18 01/24/18 03:10 03:56 06:59 07:58 Temp 98.6 98.0 98.6 98.0 Pulse 70 66 Resp 16 18 B/P (MAP) 162/100 (120) 176/98 (124) Pulse Ox 94 95 95 99 O2 Delivery Room Air Room Air Room Air 01/24/18 07:59 Resp 18 O2 Delivery Room Air Intake and Output 01/23/18 01/23/18 01/24/18 15:00 23:00 07:00 Intake Total 600 ml 700 ml 360 ml Balance 600 ml 700 ml 360 ml SMITH SAUER MD Jan 24, 2018 10:32
[2018-01-24] MEDS ORDERED: DOXYCYCLINE HYCLATE 100 MG TABLET PO SCH (11:00)
[2018-01-24 11:36] LABS: ALBUMIN 2.5 g/dL (3.4-5.0); ALBUMIN/GLOBULIN RATIO 0.6 (1.0-1.7); CALCIUM 8.2 mg/dL (8.5-10.1); CREATININE 0.7 mg/dL (0.7-1.3); GFR 118.4; POTASSIUM 3.4 mmol/L (3.5-5.1); TOTAL BILIRUBIN 0.6 mg/dL (0.2-1.0); TOTAL PROTEIN 6.6 g/dL (6.4-8.2)
[2018-01-24 11:51] VITALS: BP 164/90
--- NOTE | 2018-01-24 12:51 | PDOC ---
Infectious Disease Note Subjective Subjective pt is feeling good ROS ROS no n/v/d/sob Vital Sign Vital Signs Vital Signs Date Time Temp Pulse Resp B/P (MAP) Pulse Ox O2 Delivery O2 Flow Rate FiO2 01/24/18 11:51 99.0 56 18 164/90 (114) 97 Room Air 99.0 01/23/18 09:23 2.0 Physical Exam PHYSICAL EXAM GENERAL: alert, smiling VITAL SIGNS: bp high HEENT: Normal conjunctivae. Oral mucosa is pink and moist. NECK: Supple. LUNGS: Clear to auscultation. HEART: S1, S2. ABDOMEN: Obese. Bowel sounds active. Soft, nontender. EXTREMITIES: left arm swelling better, SKIN: Warm without rash. NEUROLOGIC: Alert and oriented x 3. Labs Lab Laboratory Tests Test 01/23/18 17:01 01/23/18 20:49 01/24/18 03:15 01/24/18 07:45 Glucose (Fingerstick) 109 mg/dL (70-99) 128 mg/dL (70-99) 96 mg/dL (70-99) White Blood Count 9.1 x10^3/uL (4.0-11.0) Red Blood Count 4.39 x10^6/uL (4.30-5.70) Hemoglobin 14.8 g/dL (13.0-17.5) Hematocrit 42.2 % (39.0-53.0) Mean Corpuscular Volume 96 fL (79-100) Mean Corpuscular Hemoglobin 34 pg (25-35) Mean Corpuscular Hemoglobin Concent 35 g/dL (31-37) Red Cell Distribution Width 13.2 % (11.5-14.5) Platelet Count 249 x10^3/uL (140-400) Neutrophils (%) (Auto) 64 % (31-73) Lymphocytes (%) (Auto) 25 % (24-48) Monocytes (%) (Auto) 10 % (0-9) Eosinophils (%) (Auto) 1 % (0-3) Basophils (%) (Auto) 1 % (0-3) Neutrophils # (Auto) 5.8 x10^3uL (1.8-7.7) Lymphocytes # (Auto) 2.2 x10^3/uL (1.0-4.8) Monocytes # (Auto) 0.9 x10^3/uL (0.0-1.1) Eosinophils # (Auto) 0.1 x10^3/uL (0.0-0.7) Basophils # (Auto) 0.1 x10^3/uL (0.0-0.2) Test 01/24/18 11:00 01/24/18 11:12 Sodium Level 138 mmol/L (136-145) Potassium Level 3.4 mmol/L (3.5-5.1) Chloride Level 102 mmol/L (98-107) Carbon Dioxide Level 28 mmol/L (21-32) Anion Gap 8 (6-14) Blood Urea Nitrogen 7 mg/dL (8-26) Creatinine 0.7 mg/dL (0.7-1.3) Estimated GFR (Cockcroft-Gault) 118.4 BUN/Creatinine Ratio 10 (6-20) Glucose Level 106 mg/dL (70-99) Calcium Level 8.2 mg/dL (8.5-10.1) Ionized Calcium 1.03 mmol/L (1.13-1.32) Total Bilirubin 0.6 mg/dL (0.2-1.0) Aspartate Amino Transf (AST/SGOT) 12 U/L (15-37) Alanine Aminotransferase (ALT/SGPT) 22 U/L (16-63) Alkaline Phosphatase 69 U/L (46-116) Total Protein 6.6 g/dL (6.4-8.2) Albumin 2.5 g/dL (3.4-5.0) Albumin/Globulin Ratio 0.6 (1.0-1.7) Glucose (Fingerstick) 105 mg/dL (70-99) Micro Procedure Result ANAEROBIC-AEROBIC CULTURE PENDING ANAEROBIC RES 1 PENDING AEROBIC CULT PENDING AEROBIC RES 1 PENDING GRAM STAIN Final Final report GRAM STAIN RES 1 Final Comment No white blood cells seen. GRAM STAIN RES 2 Final No organisms seen Performed at: [facility] [address], [place], [place] [id number] Manufacturing Process Engineer: DIEGO Massey MD, Phone: [phone] Objective Assessment 1. Cellulitis of the left hand. s/p I and d 2. PENICILLIN allergy causing WELTS. 3. Hypertension. Plan Plan of Care d/c ok on po doxy pt to call my office in 1-2 days to check on culture just in case we have to change antibiotics f/u with me in 1 wk ANGI SALCEDO MD Jan 24, 2018 12:51
[2018-01-24 15:19] VITALS: BP 157/97
--- NOTE | 2018-01-24 15:44 | PDOC3 ---
Discharge Summary Date of Admission: Jan 20, 2018 Date of Discharge: Jan 24, 2018 Follow-Up: 3-5 days Admitting Diagnosis comment: Chief Complaint smashed his right index finger at work. some pain and swelling last week, he woke with swelling of his left hand. History of Present Illness History of Present Illness discharge diagnosis marked Cellulitis of left hand POST I/D PCN allergy - Hypertension, uncontrolled, will give clonidine 0.2 mg po x 1 now Morbid obesity hyperglycemia, a1c ordered Plan a1c, accuchecks d/c vancomycin, ROCEPHIN begin doxycycline 100mg po bid x 10 days home later today when bp better see ID IN 4-5 DAYS SEE ORTHO NEXT WEEK Ortho FOLLOWING Vitals Vitals Vital Signs Date Time Temp Pulse Resp B/P (MAP) Pulse Ox O2 Delivery O2 Flow Rate FiO2 01/24/18 07:59 18 Room Air 01/24/18 07:58 98.0 66 176/98 (124) 99 98.0 01/23/18 09:23 2.0 Physical Exam Physical Exam GENERAL: alert, smiling VITAL SIGNS: bp high HEENT: Normal conjunctivae. Oral mucosa is pink and moist. NECK: Supple. LUNGS: Clear to auscultation. HEART: S1, S2. ABDOMEN: Obese. Bowel sounds active. Soft, nontender. EXTREMITIES: left arm swelling better, SKIN: Warm without rash. NEUROLOGIC: Alert and oriented x 3. General: Alert, Oriented X3, Cooperative, No acute distress, mild distress, moderate distress Heart: Regular rate, Normal S1, Normal S2, No murmurs Lungs: Clear Abdomen: Normal bowel sounds, Soft Extremities: No clubbing, No cyanosis, Normal pulses Skin: Other (HAND WRAPPED, DRY, elevated) Labs FINAL DIAGNOSIS Problems Medical Problems: (1) Cellulitis of hand Status: Acute Brief Hospital Course Mr. Roy is a 52 old [sex] who presented with [ CELLULITIS LEFT HAND] CONDITION AT DISCHARGE: Improved Discharge Medications Current Medications Morphine Sulfate (Morphine Sulfate) 4 mg 1X ONCE IV Last administered on at 11:47; Start 01/20/18 at 12:00; Stop 01/20/18 at 12:01; Status DC Ondansetron HCl (Zofran) 4 mg 1X ONCE IV Last administered on 01/20/18at 11:47 ; Start 01/20/18 at 12:00; Stop 01/20/18 at 12:01; Status DC Vancomycin HCl 2 gm/Sodium Chloride 500 ml @ 250 mls/hr 1X ONCE IV Last administered on 01/20/18at 13:32; Start 01/20/18 at 13:30; Stop 01/20/18 at 15:29 ; Status DC Cefazolin Sodium 50 ml @ 100 mls/hr 1X ONCE IV Last administered on at 12:59; Start 01/20/18 at 13:00; Stop 01/20/18 at 13:29; Status DC Ondansetron HCl (Zofran) 4 mg PRN Q8HRS PRN IV NAUSEA/VOMITING; Start 01/20/18 at 12:45; Stop 01/21/18 at 12:44; Status DC Morphine Sulfate (Morphine Sulfate) 2 mg PRN Q2HR PRN IV PAIN Last administered on 01/21/18at 05:46; Start 01/20/18 at 12:45; Stop 01/21/18 at 12:44 ; Status DC Acetaminophen (Tylenol) 650 mg PRN Q4HRS PRN PO FEVER; Start 01/20/18 at 12:45 ; Stop 01/21/18 at 12:44; Status DC Vancomycin HCl (Vanco Per Pharmacy) 1 each PRN DAILY PRN MC SEE COMMENTS Last administered on 01/23/18at 08:14; Start 01/20/18 at 17:15; Stop 01/24/18 at 10:37 ; Status DC Vancomycin HCl 1.5 gm/Sodium Chloride 500 ml @ 250 mls/hr Q8H IV Last administered on 01/21/18at 14:46; Start 01/20/18 at 21:30; Stop 01/21/18 at 14:48 ; Status DC Vancomycin HCl (Vancomycin Trough Level) 1 each 1X ONCE MC ; Start 01/21/18 at 13:00; Stop 01/21/18 at 13:01; Status DC Ondansetron HCl (Zofran) 4 mg PRN Q6HRS PRN IV NAUSEA/VOMITING; Start 01/21/18 at 09:45; Stop 01/22/18 at 09:44; Status DC Fentanyl Citrate (Fentanyl 2ml Vial) 25 mcg PRN Q5MIN PRN IV MILD PAIN; Start 01/21/18 at 09:45; Stop 01/21/18 at 23:00; Status DC Fentanyl Citrate (Fentanyl 2ml Vial) 50 mcg PRN Q5MIN PRN IV MODERATE TO SEVERE PAIN Last administered on 01/21/18at 16:09; Start 01/21/18 at 09:45; Stop 01/21/18 at 23:00; Status DC Morphine Sulfate (Morphine Sulfate) 1 mg PRN Q10MIN PRN IV SEVERE PAIN; Start 01/21/18 at 09:45; Stop 01/21/18 at 23:00; Status DC Ringer's Solution 1,000 ml @ 30 mls/hr Q24H IV Last administered on 01/21/18at 12:36; Start 01/21/18 at 09:45; Stop 01/21/18 at 21:44; Status DC Lidocaine HCl (Xylocaine-Mpf 1% 2ml Vial) 2 ml 1X PRN PRN ID IV START; Start at 09:45; Stop 01/21/18 at 23:00; Status DC Hydromorphone HCl (Dilaudid) 0.5 mg PRN Q10MIN PRN IV SEV PAIN, Second choice; Start 01/21/18 at 09:45; Stop 01/21/18 at 23:00; Status DC Prochlorperazine Edisylate (Compazine) 5 mg PACU PRN PRN IV NAUSEA, MRX1; Start 01/21/18 at 09:45; Stop 01/21/18 at 23:00; Status DC Lactobacillus Rhamnosus (Culturelle) 1 cap BID PO Last administered on at 08:13; Start 01/21/18 at 21:00 Propofol 20 ml @ As Directed STK-MED ONCE IV ; Start 01/21/18 at 12:30; Stop at 19:54; Status DC Lidocaine HCl (Lidocaine Pf 2% Vial) 5 ml STK-MED ONCE .ROUTE ; Start 01/21/18 at 12:30; Stop 01/21/18 at 12:31; Status DC Scopolamine (Transderm-Scop) 1 patch 1X ONCE TD Last administered on at 13:13; Start 01/21/18 at 13:30; Stop 01/21/18 at 13:31; Status DC Lidocaine HCl (Xylocaine 1% Pf 30ml Vial) 30 ml STK-MED ONCE .ROUTE Last administered on 01/21/18at 14:58; Start 01/21/18 at 12:15; Stop 01/21/18 at 13:16 ; Status DC Bupivacaine HCl (Marcaine 0.5%) 50 ml STK-MED ONCE .ROUTE Last administered on 01/21/18at 14:58; Start 01/21/18 at 12:15; Stop 01/21/18 at 13:16; Status DC Dexamethasone Sodium Phosphate (Decadron) 20 mg STK-MED ONCE .ROUTE ; Start at 14:20; Stop 01/21/18 at 14:21; Status DC Famotidine (Pepcid Vial) 20 mg STK-MED ONCE .ROUTE ; Start 01/21/18 at 14:20; Stop 01/21/18 at 14:21; Status DC Ondansetron HCl (Zofran) 4 mg STK-MED ONCE .ROUTE ; Start 01/21/18 at 14:20; Stop 01/21/18 at 14:21; Status DC Fentanyl Citrate (Fentanyl 2ml Vial) 100 mcg STK-MED ONCE .ROUTE ; Start at 14:20; Stop 01/21/18 at 14:22; Status DC Midazolam HCl (Versed) 2 mg STK-MED ONCE .ROUTE ; Start 01/21/18 at 14:20; Stop 01/21/18 at 14:22; Status DC Fentanyl Citrate (Fentanyl 2ml Vial) 100 mcg STK-MED ONCE .ROUTE ; Start at 14:46; Stop 01/21/18 at 14:47; Status DC Vancomycin HCl 1.75 gm/Sodium Chloride 500 ml @ 250 mls/hr Q8H IV Last administered on 01/24/18at 06:58; Start 01/21/18 at 15:00; Stop 01/24/18 at 10:37 ; Status DC Isoflurane (Isoflurane) 60 ml STK-MED ONCE IH ; Start 01/21/18 at 14:55; Stop at 14:56; Status DC Sevoflurane (Ultane) 30 ml STK-MED ONCE IH ; Start 01/21/18 at 15:00; Stop 01/21 at 15:01; Status DC Fentanyl Citrate (Fentanyl 2ml Vial) 100 mcg STK-MED ONCE .ROUTE ; Start at 15:43; Stop 01/21/18 at 15:44; Status DC Morphine Sulfate (Morphine Sulfate) 2 mg PRN Q2HR PRN IV PAIN Last administered on 01/22/18at 09:07; Start 01/22/18 at 08:30; Stop 01/24/18 at 10:37 ; Status DC Acetaminophen/ Hydrocodone Bitart (Lortab 7.5/325) 1 tab PRN Q4HRS PRN PO PAIN Last administered on 01/24/18at 13:11; Start 01/22/18 at 09:00 Ceftriaxone Sodium 1 gm/ Dextrose 50 ml @ 100 mls/hr Q24H IV ; Start 01/22/18 at 12:30; Stop 01/22/18 at 12:30; Status DC Ceftriaxone Sodium (Rocephin) 1 gm Q24H IVP Last administered on 01/23/18at 13: 04; Start 01/22/18 at 13:00; Stop 01/24/18 at 10:37; Status DC Vancomycin HCl (Vancomycin Trough Level) 1 each 1X ONCE MC Last administered on 01/23/18at 06:30; Start 01/23/18 at 06:30; Stop 01/23/18 at 06:31; Status DC Lisinopril (Prinivil) 5 mg BID76 PO ; Start 01/24/18 at 18:00 Clonidine HCl (Catapres) 0.2 mg 1X ONCE PO Last administered on 01/24/18at 13: 09; Start 01/24/18 at 10:30; Stop 01/24/18 at 10:34; Status DC Doxycycline Hyclate (Vibra-Tab) 100 mg BID PO Last administered on 01/24/18at 13 :08; Start 01/24/18 at 11:00 Vital Signs Vital Signs Date Time Temp Pulse Resp B/P (MAP) Pulse Ox O2 Delivery O2 Flow Rate FiO2 01/24/18 15:19 98.3 71 16 157/97 (117) 95 Room Air 98.3 01/23/18 09:23 2.0 Labs Laboratory Tests Test 01/23/18 06:40 8/22/18 17:01 01/23/18 20:49 01/24/18 03:15 Sodium Level 140 mmol/L (136-145) Potassium Level 3.6 mmol/L (3.5-5.1) Chloride Level 106 mmol/L (98-107) Carbon Dioxide Level 27 mmol/L (21-32) Anion Gap 7 (6-14) Blood Urea Nitrogen 10 mg/dL (8-26) Creatinine 0.7 mg/dL (0.7-1.3) Estimated GFR (Cockcroft-Gault) 118.4 Glucose Level 94 mg/dL (70-99) Calcium Level 7.7 mg/dL (8.5-10.1) Vancomycin Level Trough 14.9 mcg/mL (10.0-20.0) Vancomycin Last Dose Date 01/22/18 Vancomycin Last Dose Time 2300 Glucose (Fingerstick) 109 mg/dL (70-99) 128 mg/dL (70-99) White Blood Count 9.1 x10^3/uL (4.0-11.0) Red Blood Count 4.39 x10^6/uL (4.30-5.70) Hemoglobin 14.8 g/dL (13.0-17.5) Hematocrit 42.2 % (39.0-53.0) Mean Corpuscular Volume 96 fL (79-100) Mean Corpuscular Hemoglobin 34 pg (25-35) Mean Corpuscular Hemoglobin Concent 35 g/dL (31-37) Red Cell Distribution Width 13.2 % (11.5-14.5) Platelet Count 249 x10^3/uL (140-400) Neutrophils (%) (Auto) 64 % (31-73) Lymphocytes (%) (Auto) 25 % (24-48) Monocytes (%) (Auto) 10 % (0-9) Eosinophils (%) (Auto) 1 % (0-3) Basophils (%) (Auto) 1 % (0-3) Neutrophils # (Auto) 5.8 x10^3uL (1.8-7.7) Lymphocytes # (Auto) 2.2 x10^3/uL (1.0-4.8) Monocytes # (Auto) 0.9 x10^3/uL (0.0-1.1) Eosinophils # (Auto) 0.1 x10^3/uL (0.0-0.7) Basophils # (Auto) 0.1 x10^3/uL (0.0-0.2) Test 01/24/18 07:45 01/24/18 11:00 01/24/18 11:12 Glucose (Fingerstick) 96 mg/dL (70-99) 105 mg/dL (70-99) Sodium Level 138 mmol/L (136-145) Potassium Level 3.4 mmol/L (3.5-5.1) Chloride Level 102 mmol/L (98-107) Carbon Dioxide Level 28 mmol/L (21-32) Anion Gap 8 (6-14) Blood Urea Nitrogen 7 mg/dL (8-26) Creatinine 0.7 mg/dL (0.7-1.3) Estimated GFR (Cockcroft-Gault) 118.4 BUN/Creatinine Ratio 10 (6-20) Glucose Level 106 mg/dL (70-99) Calcium Level 8.2 mg/dL (8.5-10.1) Ionized Calcium 1.03 mmol/L (1.13-1.32) Total Bilirubin 0.6 mg/dL (0.2-1.0) Aspartate Amino Transf (AST/SGOT) 12 U/L (15-37) Alanine Aminotransferase (ALT/SGPT) 22 U/L (16-63) Alkaline Phosphatase 69 U/L (46-116) Total Protein 6.6 g/dL (6.4-8.2) Albumin 2.5 g/dL (3.4-5.0) Albumin/Globulin Ratio 0.6 (1.0-1.7) Laboratory Tests Test 01/23/18 17:01 01/23/18 20:49 01/24/18 03:15 01/24/18 07:45 Glucose (Fingerstick) 109 mg/dL (70-99) 128 mg/dL (70-99) 96 mg/dL (70-99) White Blood Count 9.1 x10^3/uL (4.0-11.0) Red Blood Count 4.39 x10^6/uL (4.30-5.70) Hemoglobin 14.8 g/dL (13.0-17.5) Hematocrit 42.2 % (39.0-53.0) Mean Corpuscular Volume 96 fL (79-100) Mean Corpuscular Hemoglobin 34 pg (25-35) Mean Corpuscular Hemoglobin Concent 35 g/dL (31-37) Red Cell Distribution Width 13.2 % (11.5-14.5) Platelet Count 249 x10^3/uL (140-400) Neutrophils (%) (Auto) 64 % (31-73) Lymphocytes (%) (Auto) 25 % (24-48) Monocytes (%) (Auto) 10 % (0-9) Eosinophils (%) (Auto) 1 % (0-3) Basophils (%) (Auto) 1 % (0-3) Neutrophils # (Auto) 5.8 x10^3uL (1.8-7.7) Lymphocytes # (Auto) 2.2 x10^3/uL (1.0-4.8) Monocytes # (Auto) 0.9 x10^3/uL (0.0-1.1) Eosinophils # (Auto) 0.1 x10^3/uL (0.0-0.7) Basophils # (Auto) 0.1 x10^3/uL (0.0-0.2) Test 01/24/18 11:00 01/24/18 11:12 Sodium Level 138 mmol/L (136-145) Potassium Level 3.4 mmol/L (3.5-5.1) Chloride Level 102 mmol/L (98-107) Carbon Dioxide Level 28 mmol/L (21-32) Anion Gap 8 (6-14) Blood Urea Nitrogen 7 mg/dL (8-26) Creatinine 0.7 mg/dL (0.7-1.3) Estimated GFR (Cockcroft-Gault) 118.4 BUN/Creatinine Ratio 10 (6-20) Glucose Level 106 mg/dL (70-99) Calcium Level 8.2 mg/dL (8.5-10.1) Ionized Calcium 1.03 mmol/L (1.13-1.32) Total Bilirubin 0.6 mg/dL (0.2-1.0) Aspartate Amino Transf (AST/SGOT) 12 U/L (15-37) Alanine Aminotransferase (ALT/SGPT) 22 U/L (16-63) Alkaline Phosphatase 69 U/L (46-116) Total Protein 6.6 g/dL (6.4-8.2) Albumin 2.5 g/dL (3.4-5.0) Albumin/Globulin Ratio 0.6 (1.0-1.7) Glucose (Fingerstick) 105 mg/dL (70-99) Allergies Allergies Coded Allergies Type Severity Reaction Last Updated Verified Penicillins Allergy Intermediate WELTS 01/23/18 Yes Disposition/Orders: D/C to Home Patient Instructions D/C PLANNING 38 MIN SMITH SAUER MD Jan 24, 2018 15:44
--- NOTE | 2018-01-24 15:45 | DISCH ---
DISCHARGE INSTRUCTIONS Condition on Discharge Condition on Discharge: Stable Activity After Discharge Activity Instructions for Disc: Activity as tolerated Bathing Instructions: Shower-keep dressing dry, No Tub Bath until see Lifting Instructions after Dis: No heavy lifting, No pulling or pushing Exercise Instruction after Dis: Walk 10 min, 3 x per day Driving Instructions after Dis: Do not drive Weight Bearing Status after Di: Full weight bearing Diet after Discharge Diet after Discharge: No Added Salt, Diabetic No Calorie Level Checks after Discharge Checks after discharge: Check blood press - daily, Check your Temp as needed Contacting the DRPerla after DC Call your doctor for: If your condition worsens SMITH SAUER MD Jan 24, 2018 15:45
[2018-01-24] MEDS ORDERED: LISI-338 PO (15:50)
[2018-01-24] MEDS ORDERED: LACT1CAP19 PO (15:50)
[2018-01-24] MEDS ORDERED: HYDR-2762 PO (15:50)
[2018-01-24] MEDS ORDERED: DOXY100T PO (15:50)
[2018-01-24] MEDS ORDERED: LISINOPRIL 5 MG TABLET. PO SCH (18:00)
--- NOTE | 2018-01-29 08:41 | PDOC2 ---
CONSULT Date of Consult Date of Consult DATE: 01/20/18 Reason for Consult Reason for Consult: Left hand infection Referring Physician Referring Physician: Kendrick Identification/Chief Complaint Chief Complaint Left hand pain Source Source: Chart review, Patient History of Present Illness Reason for Visit: Patient is a pleasant 52-year-old Somali-speaking gentleman who works with his hands and thinks he may have had a puncture wound couple days ago. He has noted a great increase in swelling and pain, no drainage from any wound, and his hand over the past several days. He was admitted and placed on IV antibiotics, this has not really helped his pain. His pain is worse with any attempted movement of his hand. It is a little bit better at rest. He has noted some swelling in his fingers. He denies any pain in his palm. Past Medical History Cardiovascular: No pertinent hx Pulmonary: No pertinent hx Musculoskeletal: low back pain Past Surgical History Past Surgical History: Other (surgery on his right leg) Family History Family History: Diabetes, Hypertension Social History No ALCOHOL: occassional Lives: with Family Current Problem List Problem List Problems Medical Problems: (1) Cellulitis of hand Status: Acute Current Medications Current Medications Current Medications Morphine Sulfate (Morphine Sulfate) 4 mg 1X ONCE IV Last administered on at 11:47; Start 01/20/18 at 12:00; Stop 01/20/18 at 12:01; Status DC Ondansetron HCl (Zofran) 4 mg 1X ONCE IV Last administered on 01/20/18at 11:47 ; Start 01/20/18 at 12:00; Stop 01/20/18 at 12:01; Status DC Vancomycin HCl 2 gm/Sodium Chloride 500 ml @ 250 mls/hr 1X ONCE IV Last administered on 01/20/18at 13:32; Start 01/20/18 at 13:30; Stop 01/20/18 at 15:29 ; Status DC Cefazolin Sodium 50 ml @ 100 mls/hr 1X ONCE IV Last administered on at 12:59; Start 01/20/18 at 13:00; Stop 01/20/18 at 13:29; Status DC Ondansetron HCl (Zofran) 4 mg PRN Q8HRS PRN IV NAUSEA/VOMITING; Start 01/20/18 at 12:45; Stop 01/21/18 at 12:44; Status DC Morphine Sulfate (Morphine Sulfate) 2 mg PRN Q2HR PRN IV PAIN Last administered on 01/21/18at 05:46; Start 01/20/18 at 12:45; Stop 01/21/18 at 12:44 ; Status DC Acetaminophen (Tylenol) 650 mg PRN Q4HRS PRN PO FEVER; Start 01/20/18 at 12:45 ; Stop 01/21/18 at 12:44; Status DC Vancomycin HCl (Vanco Per Pharmacy) 1 each PRN DAILY PRN MC SEE COMMENTS Last administered on 01/23/18at 08:14; Start 01/20/18 at 17:15; Stop 01/24/18 at 10:37 ; Status DC Vancomycin HCl 1.5 gm/Sodium Chloride 500 ml @ 250 mls/hr Q8H IV Last administered on 01/21/18at 14:46; Start 01/20/18 at 21:30; Stop 01/21/18 at 14:48 ; Status DC Vancomycin HCl (Vancomycin Trough Level) 1 each 1X ONCE MC ; Start 01/21/18 at 13:00; Stop 01/21/18 at 13:01; Status DC Ondansetron HCl (Zofran) 4 mg PRN Q6HRS PRN IV NAUSEA/VOMITING; Start 01/21/18 at 09:45; Stop 01/22/18 at 09:44; Status DC Fentanyl Citrate (Fentanyl 2ml Vial) 25 mcg PRN Q5MIN PRN IV MILD PAIN; Start 01/21/18 at 09:45; Stop 01/21/18 at 23:00; Status DC Fentanyl Citrate (Fentanyl 2ml Vial) 50 mcg PRN Q5MIN PRN IV MODERATE TO SEVERE PAIN Last administered on 01/21/18at 16:09; Start 01/21/18 at 09:45; Stop 01/21/18 at 23:00; Status DC Morphine Sulfate (Morphine Sulfate) 1 mg PRN Q10MIN PRN IV SEVERE PAIN; Start 01/21/18 at 09:45; Stop 01/21/18 at 23:00; Status DC Ringer's Solution 1,000 ml @ 30 mls/hr Q24H IV Last administered on 01/21/18at 12:36; Start 01/21/18 at 09:45; Stop 01/21/18 at 21:44; Status DC Lidocaine HCl (Xylocaine-Mpf 1% 2ml Vial) 2 ml 1X PRN PRN ID IV START; Start at 09:45; Stop 01/21/18 at 23:00; Status DC Hydromorphone HCl (Dilaudid) 0.5 mg PRN Q10MIN PRN IV SEV PAIN, Second choice; Start 01/21/18 at 09:45; Stop 01/21/18 at 23:00; Status DC Prochlorperazine Edisylate (Compazine) 5 mg PACU PRN PRN IV NAUSEA, MRX1; Start 01/21/18 at 09:45; Stop 01/21/18 at 23:00; Status DC Lactobacillus Rhamnosus (Culturelle) 1 cap BID PO Last administered on at 08:13; Start 01/21/18 at 21:00; Stop 01/24/18 at 18:07; Status DC Propofol 20 ml @ As Directed STK-MED ONCE IV ; Start 01/21/18 at 12:30; Stop at 19:54; Status DC Lidocaine HCl (Lidocaine Pf 2% Vial) 5 ml STK-MED ONCE .ROUTE ; Start 01/21/18 at 12:30; Stop 01/21/18 at 12:31; Status DC Scopolamine (Transderm-Scop) 1 patch 1X ONCE TD Last administered on at 13:13; Start 01/21/18 at 13:30; Stop 01/21/18 at 13:31; Status DC Lidocaine HCl (Xylocaine 1% Pf 30ml Vial) 30 ml STK-MED ONCE .ROUTE Last administered on 01/21/18at 14:58; Start 01/21/18 at 12:15; Stop 01/21/18 at 13:16 ; Status DC Bupivacaine HCl (Marcaine 0.5%) 50 ml STK-MED ONCE .ROUTE Last administered on 01/21/18at 14:58; Start 01/21/18 at 12:15; Stop 01/21/18 at 13:16; Status DC Dexamethasone Sodium Phosphate (Decadron) 20 mg STK-MED ONCE .ROUTE ; Start at 14:20; Stop 01/21/18 at 14:21; Status DC Famotidine (Pepcid Vial) 20 mg STK-MED ONCE .ROUTE ; Start 01/21/18 at 14:20; Stop 01/21/18 at 14:21; Status DC Ondansetron HCl (Zofran) 4 mg STK-MED ONCE .ROUTE ; Start 01/21/18 at 14:20; Stop 01/21/18 at 14:21; Status DC Fentanyl Citrate (Fentanyl 2ml Vial) 100 mcg STK-MED ONCE .ROUTE ; Start at 14:20; Stop 01/21/18 at 14:22; Status DC Midazolam HCl (Versed) 2 mg STK-MED ONCE .ROUTE ; Start 01/21/18 at 14:20; Stop 01/21/18 at 14:22; Status DC Fentanyl Citrate (Fentanyl 2ml Vial) 100 mcg STK-MED ONCE .ROUTE ; Start at 14:46; Stop 01/21/18 at 14:47; Status DC Vancomycin HCl 1.75 gm/Sodium Chloride 500 ml @ 250 mls/hr Q8H IV Last administered on 01/24/18at 06:58; Start 01/21/18 at 15:00; Stop 01/24/18 at 10:37 ; Status DC Isoflurane (Isoflurane) 60 ml STK-MED ONCE IH ; Start 01/21/18 at 14:55; Stop at 14:56; Status DC Sevoflurane (Ultane) 30 ml STK-MED ONCE IH ; Start 01/21/18 at 15:00; Stop 01/21 at 15:01; Status DC Fentanyl Citrate (Fentanyl 2ml Vial) 100 mcg STK-MED ONCE .ROUTE ; Start at 15:43; Stop 01/21/18 at 15:44; Status DC Morphine Sulfate (Morphine Sulfate) 2 mg PRN Q2HR PRN IV PAIN Last administered on 01/22/18at 09:07; Start 01/22/18 at 08:30; Stop 01/24/18 at 10:37 ; Status DC Acetaminophen/ Hydrocodone Bitart (Lortab 7.5/325) 1 tab PRN Q4HRS PRN PO PAIN Last administered on 01/24/18at 13:11; Start 01/22/18 at 09:00; Stop 01/24/18 at 18:07; Status DC Ceftriaxone Sodium 1 gm/ Dextrose 50 ml @ 100 mls/hr Q24H IV ; Start 01/22/18 at 12:30; Stop 01/22/18 at 12:30; Status DC Ceftriaxone Sodium (Rocephin) 1 gm Q24H IVP Last administered on 01/23/18at 13: 04; Start 01/22/18 at 13:00; Stop 01/24/18 at 10:37; Status DC Vancomycin HCl (Vancomycin Trough Level) 1 each 1X ONCE MC Last administered on 01/23/18at 06:30; Start 01/23/18 at 06:30; Stop 01/23/18 at 06:31; Status DC Lisinopril (Prinivil) 5 mg BID76 PO ; Start 01/24/18 at 18:00; Stop 01/24/18 at 18:07; Status DC Clonidine HCl (Catapres) 0.2 mg 1X ONCE PO Last administered on 01/24/18at 13: 09; Start 01/24/18 at 10:30; Stop 01/24/18 at 10:34; Status DC Doxycycline Hyclate (Vibra-Tab) 100 mg BID PO Last administered on 01/24/18at 13 :08; Start 01/24/18 at 11:00; Stop 01/24/18 at 18:07; Status DC Active Scripts Active Culturelle (Lactobacillus Rhamnosus Gg) 1 Each Cap.sprink 1 Cap PO BID 30 Days Hydrocodone-Apap 7.5-325 (Hydrocodone Bit/Acetaminophen) 1 Each Tablet 1 Tab PO PRN Q4HRS PRN 10 Days Lisinopril 5 Mg Tablet 5 Mg PO BID76 30 Days Doxycycline Hyclate 100 Mg Tablet 100 Mg PO BID 10 Days Allergies Allergies: Coded Allergies: Penicillins (Verified Allergy, Intermediate, WELTS, 01/23/18) TOLERATES CEFTRIAXONE ROS General: No: Chills, Night Sweats, Fatigue, Malaise, Appetite, Other Eyes: No Blurry vision, No Decreased vision, No Double vision, No Dry eyes, No Excessive tearing, No Eye Pain, No Itchy Eyes, No Loss of vision, No Photophobia , No Scotomata, No Uses contacts, No Uses glasses, No Other HEENT: No: Heacaches, Visual Changes, Hearing change, Nasal congestion, Nasal discharge, Oral lesions, Sinus pain, Sore Throat, Epistaxis, Sneezing, Snoring, Tinnitus, Vertigo, Vocal changes, Other ALLERGY AND IMMUNOLOGY: No: Hives, Insect Bite Sensitivity, Itchy/Watery Eyes, Nasal Congestion, Post Nasal Drip, Seasonal Allergies, Other Hematological and Lymphatic: No: Bleeding Problems, Blood Clots, Blood Transfusions, Brusing, Night Sweats, Pallor, Swollen Lymph Nodes, Other ENDOCRINE: No: Breast Changes, Galactorrhea, Hair Pattern Changes, Hot Flashes , Malaise/lethargy, Mood Swings, Palpitations, Polydipsia/polyuria, Skin Changes , Temperature Intolerance, Unexpected Weight Changes, Other Respiratory: No: Cough, Hemoptysis, Orthopnea, Pleuritic Pain, Shortness of breath, SOB with excertion, Sputum Changes, Stridor, Tachypnea, Wheezing, Other Cardiovascular: No Chest Pain, No Palpitations, No Orthopnea, No Paroxysmal Noc. Dyspnea, No Edema, No Lt Headedness, No Other Genitourinary: No Dysuria, No Frequency, No Incontinence, No Hematuria, No Retention, No Discharge, No Urgency, No Pain, No Flank Pain, No Other, No , No , No , No , No , No , No Musculoskeletal: Yes Joint Stiffness, Yes Pain In: (left hand) Neurological: No Behavorial Changes, No Bowel/Bladder ControlChng, No Confusion , No Dizziness, No Gait Disturbance, No Headaches, No Impaired Coord/balance, No Memory Loss, No Numbness/Tingling, No Seizures, No Speech Problems, No Tremors, No Visual Changes, No Weakness, No Other Physical Exam General: Alert, Oriented X3 HEENT: Atraumatic, EOMI Lungs: Other (respirations are unlabored with symmetric chest rise) Heart: Regular rate, No murmurs Abdomen: Soft, No tenderness Extremities: No edema (with the exception of left hand), Normal pulses Neuro: Normal speech, Strength at 5/5 X4 ext, Sensation intact Psych/Mental Status: Mental status NL, Mood NL MUSCULOSKELETAL: Other (he has a large amount of edema and some cellulitic changes at the dorsum of his left hand. Extends over the entire dorsum of his hand from his MCP joints to his wrist joint. No obvious open wounds. No tenderness and flexor sheaths or palm. He does have mild edema in his fingers, but not very much) Images Images Hand x-rays were reviewed Assessment/Plan Assessment/Plan Dorsal left hand infection. I did discuss the risks, benefits, and alternatives with the aid of an magento web developer to proceeding with irrigation and debridement and obtaining samples for culture. We will plan on surgery tomorrow. ADRIAN MASTERSON II, MD Jan 29, 2018 08:40
== END 2018-01-24 17:25 | disposition home or self-care (01) | DRG 581 ==
LOC: ER 10:50 → 6 SOUTH 12:45
PROVIDERS: ADMIT Internal Medicine; ATTEND Internal Medicine
PROC: 0J9K0ZZ Drainage of Left Hand Subcutaneous Tissue and Fascia, Open Approach (ICD-10-PCS; principal; 2018-01-21 15:15)
DX: L03.114 Cellulitis of left upper limb (principal); I10 Essential (primary) hypertension; E66.01 Morbid (severe) obesity due to excess calories; W23.0XXA Caught, crushed, jammed, or pinched between moving objects, initial encounter; R73.9 Hyperglycemia, unspecified; Z82.49 Family history of ischemic heart disease and other diseases of the circulatory system; Z88.0 Allergy status to penicillin; Y93.89 Activity, other specified; Y92.89 Other specified places as the place of occurrence of the external cause; Y99.8 Other external cause status; Z79.899 Other long term (current) drug therapy; Z68.39 Body mass index [BMI] 39.0-39.9, adult
CPT/HCPCS: 36415; 73130; 80048; 80053; 80202; 82310; 82962; 85025; 86140; 87071; 87075; 96365; 96375; A7015; J0690; J0696; J1100; J2001; J2250; J2270; J2405; J2704; J3010; J3370; J3490; J7040; J7120; S0028; 99285-25; A4461